=== PATIENT | female | born 1975 | race Caucasian/White ===

== ENCOUNTER → 2016-05-05 | Outpatient (REF) | payer OTHER | END | disposition home or self-care (01) | LOC: M SFHCLERA 16:05 | PROVIDERS: ATTEND Family Medicine | DX: E11.21 Type 2 diabetes mellitus with diabetic nephropathy (principal) ==

== ENCOUNTER → 2016-05-11 | Outpatient (REF) | payer OTHER | END | disposition home or self-care (01) | LOC: M SFHCLERA 12:04 | PROVIDERS: ATTEND Family Medicine | DX: M16.11 Unilateral primary osteoarthritis, right hip (principal) ==

== ENCOUNTER → 2016-06-29 | Outpatient (CLI) | payer OTHER ==
--- NOTE | 2016-06-29 15:02 | REP ---
Clinical: Ulnar neuritis. Technique: AP, lateral, bilateral oblique views of the left elbow. Findings: Age-related changes appreciated. No evidence for acute fracture or dislocation. No significant swelling. Anterior and posterior fat pads are not normal position. No periarticular or soft tissue calcifications identified. Impression: Age-appropriate left elbow radiograph series. Signed by Ashwin Yañez MD 06/29/2016 02:53 P
== END ==
LOC: M LRY 14:32
PROVIDERS: ATTEND Family Medicine
DX: G56.22 Lesion of ulnar nerve, left upper limb (principal)

== ENCOUNTER 2016-07-07 16:26 | Emergency (ER) | payer OTHER ==
[~2016-07-07] VITALS: Ht 160 cm; Wt 93.0 kg
[2016-07-07 16:27] VITALS: BP 174/93
[2016-07-07] MEDS ORDERED: OMEP20CA3 PO (16:40)
[2016-07-07] MEDS ORDERED: ATEN50TA2 PO (16:40)
[2016-07-07] MEDS ORDERED: PRAV1TAB39 PO (16:40)
[2016-07-07] MEDS ORDERED: BUPR1TAB17 PO (16:40)
[2016-07-07] MEDS ORDERED: IBUP800T23 PO (16:40)
[2016-07-07] MEDS ORDERED: INVO300T PO (16:40)
[2016-07-07] MEDS ORDERED: OXYC-517 PO (16:40)
[2016-07-07] MEDS ORDERED: TOUJ1.2I SC (16:40)
[2016-07-07] MEDS ORDERED: ZOLO100T PO (16:40)
[2016-07-07] MEDS ORDERED: HYDR12.55 PO (16:40)
[2016-07-07] MEDS ORDERED: LIDO1OIN2 TOP (16:53)
== END 2016-07-07 17:13 | disposition home or self-care (01) ==
LOC: M ED 16:57
DX: G56.02 Carpal tunnel syndrome, left upper limb (principal); F99 Mental disorder, not otherwise specified; F17.210 Nicotine dependence, cigarettes, uncomplicated; Z79.899 Other long term (current) drug therapy; Z88.0 Allergy status to penicillin; Z79.84 Long term (current) use of oral hypoglycemic drugs; Z79.4 Long term (current) use of insulin

== ENCOUNTER → 2016-07-26 | Outpatient (CLI) | payer OTHER ==
[~2016-07-26] MED LIST: ATEN50TA2 PO; BUPR1TAB17 PO; HYDR12.55 PO; IBUP800T23 PO; INVO300T PO; LIDO1OIN2 TOP; OMEP20CA3 PO; OXYC-517 PO; PRAV1TAB39 PO; TOUJ1.2I SC; ZOLO100T PO
--- NOTE | 2016-07-27 03:24 | REP ---
Clinical: Pain. Technique: AP, lateral, bilateral oblique views. Findings: The carpal bones, surrounding osseous structures, soft tissues, and joint spaces are normal. There is no evidence for acute fracture or dislocation. No subcutaneous emphysema or radiodense foreign body. Impression: Normal age appropriate wrist series. No acute fracture or dislocation Signed by Ashwin Yañez MD 07/27/2016 03:16 A
--- NOTE | 2016-07-27 03:26 | REP ---
Clinical: Pain . Technique: AP, lateral, bilateral oblique views left hand . Findings: The osseous structures and joint spaces are intact and normal for age . There is no evidence for acute fracture or dislocation. Surrounding soft tissues are unremarkable. No significant arthritic change is appreciated. No subcutaneous emphysema or radiodense foreign body. Impression: Normal age appropriate examination. No acute fracture or dislocation. Signed by Ashwin Yañez MD 07/27/2016 03:17 A
== END ==
LOC: M LRY 11:08
PROVIDERS: ATTEND Family Medicine
DX: E11.21 Type 2 diabetes mellitus with diabetic nephropathy (principal); M79.642 Pain in left hand

== ENCOUNTER → 2017-06-20 | Outpatient (REF) | payer OTHER ==
[2017-06-20 21:25] LABS: ANION GAP 11 MEQ/L (8-16); BLOOD UREA NITROGEN 20 MG/DL (7-18); CALCIUM LEVEL 9.2 MG/DL (8.5-10.1); CARBON DIOXIDE LEVEL 28 MEQ/L (21-32); CHLORIDE LEVEL 96 MEQ/L (98-107); CREATININE FOR GFR 0.82 MG/DL (0.55-1.30); GLOMERULAR FILTRATION RATE > 60.0 (>58); GLUCOSE, FASTING 288 MG/DL (70-100); POTASSIUM SERUM 4.4 MEQ/L (3.5-5.1); SODIUM LEVEL 135 MEQ/L (136-145)
[2017-06-20 21:53] LABS: CREATININE, URINE 36.7 MG/DL
[2017-06-20 22:01] LABS: ESTIMATED AVERAGE GLUCOSE 269 MG/DL (60-110)
== END ==
LOC: M SFHCLERA 15:01
DX: E11.21 Type 2 diabetes mellitus with diabetic nephropathy (principal)
CPT/HCPCS: 83036

== ENCOUNTER → 2017-09-19 | Outpatient (REF) | payer OTHER ==
[2017-09-19 18:01] LABS: ESTIMATED AVERAGE GLUCOSE 249 MG/DL (60-110); HEMOGLOBIN A1c 10.3 %
[2017-09-19 18:11] LABS: ALBUMIN 2.7 GM/DL (3.2-5.2); ALKALINE PHOSPHATASE 98 U/L (45-117); ALT/SGPT 28 U/L (12-78); ANION GAP 8 MEQ/L (8-16); AST/SGOT 15 U/L (7-37); BILIRUBIN,TOTAL 0.2 MG/DL (0.2-1.0); BLOOD UREA NITROGEN 18 MG/DL (7-18); CALCIUM LEVEL 8.5 MG/DL (8.5-10.1); CARBON DIOXIDE LEVEL 29 MEQ/L (21-32); CHLORIDE LEVEL 105 MEQ/L (98-107); CREATININE FOR GFR 0.86 MG/DL (0.55-1.30); FREE T4 0.91 NG/DL (0.76-1.46); GLOMERULAR FILTRATION RATE > 60.0 (>58); GLUCOSE, FASTING 224 MG/DL (70-100); POTASSIUM SERUM 4.2 MEQ/L (3.5-5.1); SODIUM LEVEL 142 MEQ/L (136-145); THYROID STIMULATING HORMONE 0.359 uIU/ML (0.358-3.740); TOTAL PROTEIN 7.2 GM/DL (6.4-8.2)
[2017-09-19 21:37] LABS: CREATININE, URINE 70.3 MG/DL; MAU/CREAT RATIO 177.8 MCG/MG (0.0-30.0)
== END ==
LOC: M SFHCLERA 14:14
DX: E11.21 Type 2 diabetes mellitus with diabetic nephropathy (principal); R60.9 Edema, unspecified

== ENCOUNTER → 2018-02-20 | Outpatient (REF) | payer OTHER | LOC: M SFHCLERA 14:11 | DX: E11.21 Type 2 diabetes mellitus with diabetic nephropathy (principal) ==

== ENCOUNTER → 2018-06-01 | Outpatient (REF) | payer OTHER ==
[~2018-06-01] MED LIST changes: +BACT800T5 PO; -BUPR1TAB17 PO; +BUPR1TAB53 PO; +DIFL150T PO; +IBUP1TAB7 PO; -IBUP800T23 PO; +PYRI1TAB5 PO; +SERO1TAB3 PO
[2018-06-01 20:46] LABS: HEMOGLOBIN A1c 9.7 %
[2018-06-01 20:54] LABS: BLOOD UREA NITROGEN 14 MG/DL (7-18); CALCIUM LEVEL 8.5 MG/DL (8.5-10.1); CARBON DIOXIDE LEVEL 26 MEQ/L (21-32); CHLORIDE LEVEL 106 MEQ/L (98-107); CHOLESTEROL LEVEL 228 MG/DL (<200); CHOLESTEROL RISK RATIO 5.428 (<5); CREATININE FOR GFR 0.61 MG/DL (0.55-1.30); GLOMERULAR FILTRATION RATE > 60.0 (>58); GLUCOSE, FASTING 231 MG/DL (70-100); HDL CHOLESTEROL 42 MG/DL (>40); LDL CHOLESTEROL 114 MG/DL (<100); NON-HDL-C 186 MG/DL; POTASSIUM SERUM 5.5 MEQ/L (3.5-5.1); SODIUM LEVEL 141 MEQ/L (136-145); TRIGLYCERIDES LEVEL 362 MG/DL (<150)
[2018-06-01 21:27] LABS: CREATININE, URINE 38.7 MG/DL; MAU/CREAT RATIO 2346.2 MCG/MG (0.0-30.0)
== END ==
LOC: M SFHCLERA 14:32
PROVIDERS: ATTEND Family Medicine
DX: E11.3593 Type 2 diabetes mellitus with proliferative diabetic retinopathy without macular edema, bilateral (principal)

== ENCOUNTER → 2018-06-26 | Outpatient (REF) | payer OTHER | LOC: M SFHCLERA 14:51 | PROVIDERS: ATTEND Family Medicine | DX: E87.5 Hyperkalemia (principal) ==

== ENCOUNTER → 2018-06-29 | Outpatient (REF) | payer OTHER ==
[2018-06-29 20:44] LABS: BASO # 0.1 10^3/uL (0.0-0.2); BASO % 0.7 % (0.0-1.0); EOS # 0.3 10^3/uL (0.0-0.50); EOS % 4.1 % (0.0-3.0); HEMATOCRIT 46.8 % (36.0-47.0); HEMOGLOBIN 14.7 g/dl (12.0-15.5); LYMPH # 2.5 10^3/uL (1.5-4.5); LYMPH % 29.8 % (24.0-44.0); MEAN CORPUSCULAR HEMOGLOBIN 27.7 pg (27.0-33.0); MEAN CORPUSCULAR HGB CONC 31.4 g/dl (32.0-36.5); MEAN CORPUSCULAR VOLUME 88.3 fl (80.0-96.0); MONO # 0.7 10^3/uL (0.0-0.8); MONO % 8.9 % (0.0-5.0); NEUTROPHILS # 4.6 10^3/uL (1.8-7.7); NEUTROPHILS % 56.1 % (36.0-66.0); PLATELET COUNT, AUTOMATED 244 10^3/uL (150-450); WHITE BLOOD COUNT 8.2 10^3/uL (4.0-10.0)
[2018-06-29 20:45] LABS: BLOOD UREA NITROGEN 18 MG/DL (7-18); CALCIUM LEVEL 8.7 MG/DL (8.5-10.1); CARBON DIOXIDE LEVEL 27 MEQ/L (21-32); CHLORIDE LEVEL 105 MEQ/L (98-107); CREATININE FOR GFR 0.81 MG/DL (0.55-1.30); GLOMERULAR FILTRATION RATE > 60.0 (>58); GLUCOSE, FASTING 177 MG/DL (70-100); POTASSIUM SERUM 4.5 MEQ/L (3.5-5.1); SODIUM LEVEL 139 MEQ/L (136-145)
[2018-06-29 21:01] LABS: HEMOGLOBIN A1c 9.2 %
== END ==
LOC: M SFHCLERA 14:42
PROVIDERS: ATTEND Family Medicine
DX: E11.21 Type 2 diabetes mellitus with diabetic nephropathy (principal)

== ENCOUNTER 2018-08-18 14:12 | Inpatient (IN) | payer OTHER ==
[~2018-08-18] VITALS: Ht 160 cm; Wt 107.7 kg
[2018-08-18] MEDS: ENOXAPARIN 40 MG/0.4 ML SYRINGE (J1650) SC SCH (09:00)
[2018-08-18 15:19] LABS: BASO # 0.1 10^3/uL (0.0-0.2); BASO % 0.3 % (0.0-1.0); EOS % 0.3 % (0.0-3.0); HEMATOCRIT 45.8 % (36.0-47.0); HEMOGLOBIN 14.8 g/dl (12.0-15.5); LYMPH # 1.9 10^3/uL (1.5-4.5); LYMPH % 12.9 % (24.0-44.0); MEAN CORPUSCULAR HEMOGLOBIN 28.3 pg (27.0-33.0); MEAN CORPUSCULAR HGB CONC 32.3 g/dl (32.0-36.5); MEAN CORPUSCULAR VOLUME 87.6 fl (80.0-96.0); MONO % 6.6 % (0.0-5.0); NEUTROPHILS # 11.3 10^3/uL (1.8-7.7); NEUTROPHILS % 79.5 % (36.0-66.0); PLATELET COUNT, AUTOMATED 231 10^3/uL (150-450); RED BLOOD COUNT 5.23 10^6/uL (4.00-5.40); WHITE BLOOD COUNT 14.3 10^3/uL (4.0-10.0)
[2018-08-18] MEDS ORDERED: FURO20TA2 PO (15:35)
[2018-08-18] MEDS ORDERED: LISI10TA4 PO (15:35)
[2018-08-18] MEDS ORDERED: PRAV20TA2 (15:35)
[2018-08-18] MEDS ORDERED: STEG15TA PO (15:35)
[2018-08-18 15:41] LABS: ALBUMIN 2.6 GM/DL (3.2-5.2); ALT/SGPT 228 U/L (12-78); BILIRUBIN,DIRECT 0.8 MG/DL (0.0-0.2); BILIRUBIN,TOTAL 1.2 MG/DL (0.2-1.0); BLOOD UREA NITROGEN 15 MG/DL (7-18); CALCIUM LEVEL 8.3 MG/DL (8.5-10.1); CARBON DIOXIDE LEVEL 28 MEQ/L (21-32); CHLORIDE LEVEL 104 MEQ/L (98-107); CREATININE FOR GFR 0.89 MG/DL (0.55-1.30); GLOMERULAR FILTRATION RATE > 60.0 (>58); GLUCOSE, FASTING 230 MG/DL (70-100); LIPASE 70 U/L (73-393); POTASSIUM SERUM 4.3 MEQ/L (3.5-5.1); SODIUM LEVEL 139 MEQ/L (136-145); TOTAL PROTEIN 6.2 GM/DL (6.4-8.2)
[2018-08-18] MEDS ORDERED: MORPHINE 4 MG/ML 1ML VIAL/SYRINGE (J2270) IV ONE (15:45)
[2018-08-18] MEDS ORDERED: ONDANSETRON 4MG/2ML VIAL (J2405) IV ONE (15:45)
[2018-08-18] MEDS ORDERED: NS 1,000 ML IV ONE ×2 (15:45→17:30)
[2018-08-18 16:06] LABS: BASO # 0.1 10^3/uL (0.0-0.2); BASO % 0.4 % (0.0-1.0); EOS # 0.1 10^3/uL (0.0-0.50); EOS % 0.3 % (0.0-3.0); HEMATOCRIT 48.2 % (36.0-47.0); HEMOGLOBIN 15.8 g/dl (12.0-15.5); LYMPH % 13.2 % (24.0-44.0); MEAN CORPUSCULAR HEMOGLOBIN 28.6 pg (27.0-33.0); MEAN CORPUSCULAR HGB CONC 32.8 g/dl (32.0-36.5); MEAN CORPUSCULAR VOLUME 87.2 fl (80.0-96.0); MONO # 1.1 10^3/uL (0.0-0.8); MONO % 7.2 % (0.0-5.0); NEUTROPHILS # 11.8 10^3/uL (1.8-7.7); NEUTROPHILS % 78.6 % (36.0-66.0); PLATELET COUNT, AUTOMATED 252 10^3/uL (150-450); RED BLOOD COUNT 5.53 10^6/uL (4.00-5.40); WHITE BLOOD COUNT 15.1 10^3/uL (4.0-10.0)
[2018-08-18 16:32] LABS: ALBUMIN 2.8 GM/DL (3.2-5.2); ALT/SGPT 301 U/L (12-78); BILIRUBIN,DIRECT 0.8 MG/DL (0.0-0.2); BILIRUBIN,TOTAL 1.2 MG/DL (0.2-1.0); BLOOD UREA NITROGEN 15 MG/DL (7-18); CALCIUM LEVEL 8.5 MG/DL (8.5-10.1); CARBON DIOXIDE LEVEL 26 MEQ/L (21-32); CHLORIDE LEVEL 104 MEQ/L (98-107); CREATININE FOR GFR 0.91 MG/DL (0.55-1.30); GLOMERULAR FILTRATION RATE > 60.0 (>58); GLUCOSE, FASTING 225 MG/DL (70-100); LIPASE 84 U/L (73-393); POTASSIUM SERUM 4.2 MEQ/L (3.5-5.1); SODIUM LEVEL 139 MEQ/L (136-145); TOTAL PROTEIN 6.5 GM/DL (6.4-8.2)
[2018-08-18] MEDS ORDERED: fentaNYL 100 MCG/2 ML INJECTION (J3010) IV ONE (17:00)
[2018-08-18] MEDS ORDERED: SODIUM CHLORIDE 0.9% 1000ML IV ONE (18:00)
[2018-08-18] MEDS ORDERED: cefTRIAXone SOD 1 GM in D5W MINI-BAG PLUS 50 ML IV ONE (18:00)
[2018-08-18] MEDS ORDERED: CVS1CAP2 PO (18:01)
[2018-08-18] MEDS ORDERED: QUET5TAB PO (18:01)
[2018-08-18] MEDS ORDERED: MULTCAP PO (18:01)
[2018-08-18] MEDS ORDERED: BUPR-365 PO (18:01)
[2018-08-18] MEDS ORDERED: DULO60CA35 PO (18:01)
[2018-08-18] MEDS ORDERED: GABA600T4 PO (18:01)
[2018-08-18] MEDS ORDERED: ADME100I SC (18:01)
[2018-08-18] MEDS ORDERED: BASA100I SC (18:01)
[2018-08-18] MEDS: MEROPENEM INJ 1 GM in APPROPRIATE DILUENT 1 EA IV SCH (18:27)
[2018-08-18] MEDS ORDERED: GLUCAGON FOR INJ 1 MG VIAL (J1610) SC PRN (18:30)
[2018-08-18] MEDS ORDERED: GLUCOSE 4 GM CHEW TABLET PO PRN (18:30)
[2018-08-18] MEDS ORDERED: DEXTROSE 50% 50 ML SYRINGE IV PRN (18:30)
--- NOTE | 2018-08-18 18:50 | HPEPDOC ---
[facility] Medical History & Physical Date of Admission Attending Physician: Vince History and Physical DATE OF ADMISSION: 08/18/2018 PCP: Silviano CHIEF COMPLAINT: Right upper quadrant abdominal pain HISTORY OF PRESENT ILLNESS: Patient is a 43-year-old female who was in the usual state of her health when last night she developed pain right upper quadrant abdominal pain to the point that she had no appetite. She tells me that she has had associated nausea but no vomiting tells me stabbing pain that comes and goes in waves she denies any fevers although she tells me she simply felt feverish but did not measure it. She has not tried taking anything for this pain again and has never had this pain before it is not positional in nature she tells me that she is started new insulin Basagalar. Otherwise denies any recent changes. The patient denies alcohol intake or illicit drug use PAST MEDICAL HISTORY: 1. Diabetes mellitus. 2. Hypertension. 3. Migraines 4. Depression and anxiety 5. Gastroc reflux disease 6. Bipolar 1 7. Noncompliance. HOME MEDICATIONS: Please see below. ALLERGIES: Please see below PAST SURGICAL HISTORY: 1. "2 right hip surgeries." 2. . 3. Right shoulder surgery 4. Carpal tunnel release bilaterally 5. "Left elbow nerve surgery." SOCIAL HISTORY: Lives with: Boyfriend and son, Employment: Unemployed, Tobacco use: 30 pack years. ETOH: Minimal last drink was months ago, Illicit drug use: Denies, Tattoos done unprofessionally: Denies. IV drug use: Denies CODE STATUS: Full code FAMILY HISTORY:Reviewed and noncontributory REVIEW OF SYSTEMS: CONSTITUTIONAL: Denies weight loss, night sweats, fatigue malaise other than noted in HPI HEENT: Denies visual changes, headache, eye pain, running nose, nosebleeds, rining in the ear, sore throat. CARDIOVASCULAR: Denies chest pain, shortness of breath, PND, orthopnea, edema. RESPIRATORY: Denies cough, sputum, wheeze, hemoptysis. GASTROINTESTINAL: Positive for abdominal pain, nausea, denies vomiting, diarrhea. GENITOURINARY: Denies incontinence, frequency, dysuria. SKIN: Denies pruritus, marcelino, dryness, open wounds. MUSCULOSKELETAL: Denies muscle ache,s weakness, worsening arthritis. NEUROLOGICAL: Denies seizures, paresthesias, paralysis, gait instability. PSYCHIATRIC: Patient denies difficulty with concentration, anxiety, anhedonia, depression, energy from her baseline. ENDOCRINE: Patient denies cold or heat intolerance, changes in appetite, hair loss. HEMATOLOGIC/LYMPHATIC: Denies purpura, petechia, easy bleeding. PHYSICAL EXAMINATION: VITAL SIGNS: Temperature 98.4, pulse 97, respiratory rate 18, blood pressure 150/77, pulse oximetry 94% % on room air. GENERAL: Pleasant obese female middle age laying in bed awake alert oriented speaking in complete sentences appears mildly uncomfortable, she is accompanied by her son and boyfriend HEENT: Moist mucous membranes no elevation and CVP CARDIOVASCULAR: S1 S2 regular no additional heart sounds appreciated. RESPIRATORY: Clear to auscultation bilaterally. ABDOMINAL: Bowel sounds present abdomen soft and exquisitely tender in the right upper quadrant with positive Lee sign EXTREMITIES: No clubbing cyanosis or edema NEUROLOGICAL: Spontaneously moves all 4 extremities cranial 2 through 12 grossly intact no gross focal deficits appreciated PSYCHOLOGICAL: Appropriate LABORATORY DATA: See below. MICROBIOLOGY: Please see below. IMAGING: Gallbladder ultrasound report pending ASSESSMENT & PLAN:. This is a 43-year-old female with right upper quadrant pain possibly choledocholithiasis versus cholecystitis PROBLEMS: 1. Right upper quadrant pain: Acute cholecystitis versus choledocholithiasis. She does have significant elevation in her liver function tests I do not have the report for her gallbladder ultrasound every step to Dr. Talavera of general surgery to review the images and see the patient in consultation and he is agreed to do so. If her CBD is dilated and more suspicious for choledocholithiasis and think the patient would benefit from an ERCP however I will await further information before reaching out to gastroenterology. For the time being I'll keep her nothing by mouth I'll start her on empiric meropenem she does present with leukocytosis and elevated lactic acid is certainly due to concern for sepsis. She did receive some IV fluids in the emergency room increased as to sepsis bolus protocol. I'll keep her nothing by mouth provided with pain medication as well as antiemetics. My suspicion for acute hepatitis is lower however I'll check a Tylenol level and a toxicology screen given the significant elevation in her liver function tests. If the gallbladder ultrasound is unrevealing she may warrant further evaluation of her right upper quadrant with a hepatic Doppler 2. Diabetes: As she is nothing by mouth I'll provide her with sliding scale every 6 and fingersticks and hyperglycemia protocol and provide her with her gabapentin to prevent any withdrawal symptoms 3. Hypertension: Given her presentation I will hold her home antihypertensives including lisinopril furosemide atenolol 4. Anxiety depression: For the time being I'm holding her bupropion duloxetine but I'm optimistic about resuming these in the near future, we'll continue her Seroquel daily at bedtime 5. Dyslipidemia: I'm holding her statin she does have an acute inflammation of her liver 6. Gastroesophageal reflux disease: I will provide her with a PPI IV DVT PROPHYLAXIS: Lovenox DISPOSITION: She is admitted to the medical surgical floor and continue to follow the patient closely Vital Signs Vital Signs Date Time Temp Pulse Resp B/P (MAP) Pulse Ox O2 Delivery O2 Flow Rate FiO2 08/18/18 18:36 08/18/18 17:42 98.4 97 18 94 Room Air Laboratory Data Labs 24H Laboratory Tests 2 08/18/18 15:07: Urine Color CARLA, Urine Appearance CLEAR, Urine pH 5.0, Urine Specific [place] 1.033, Urine Protein 2+H, Urine Glucose (UA) 3+H, Urine Ketones NEGATIVE, Urine Blood 2+H, Urine Nitrite NEGATIVE, Urine Bilirubin NEGATIVE, Urine Urobilinogen 4.0H, Urine Leukocyte Esterase NEGATIVE, Urine WBC (Auto) 1, Urine RBC (Auto) 16H, Urine Hyaline Casts (Auto) 0, Urine Bacteria (Auto) NEGATIVE, Urine Squamous Epithelial Cells 3, Urine Sperm (Auto) 08/18/18 15:08: Immature Granulocyte % (Auto) 0.4, White Blood Count 14.3H, Red Blood Count 5.23, Hemoglobin 14.8, Hematocrit 45.8, Mean Corpuscular Volume 87.6, Mean Corpuscular Hemoglobin 28.3, Mean Corpuscular Hemoglobin Concent 32.3, Red Cell Distribution Width 15.0H, Platelet Count 231, Neutrophils (%) (Auto) 79.5H, Lymphocytes (%) (Auto) 12.9L, Monocytes (%) (Auto) 6.6H, Eosinophils (%) (Auto) 0.3, Basophils (%) (Auto) 0.3, Neutrophils # (Auto) 11.3H, Lymphocytes # (Auto) 1.9, Monocytes # (Auto) 1.0H, Eosinophils # (Auto) 0.0, Basophils # (Auto) 0.1, Nucleated Red Blood Cells % (auto) 0.0, Anion Gap 7L, Glomerular Filtration Rate > 60.0, Calcium Level 8.3L, Aspartate Amino Transf (AST/SGOT) 544H, Alanine Aminotransferase (ALT/SGPT) 228H, Alkaline Phosphatase 182H, Total Bilirubin 1.2H, Direct Bilirubin 0.8H, Total Protein 6.2L, Albumin 2.6L, Albumin/Globulin Ratio 0.72L, Lipase 70L 08/18/18 15:57: Immature Granulocyte % (Auto) 0.3, White Blood Count 15.1H, Red Blood Count 5.53H, Hemoglobin 15.8H, Hematocrit 48.2H, Mean Corpuscular Volume 87.2, Mean Corpuscular Hemoglobin 28.6, Mean Corpuscular Hemoglobin Concent 32.8, Red Cell Distribution Width 15.0H, Platelet Count 252, Neutrophils (%) (Auto) 78.6H, Lymphocytes (%) (Auto) 13.2L, Monocytes (%) (Auto) 7.2H, Eosinophils (%) (Auto) 0.3, Basophils (%) (Auto) 0.4, Neutrophils # (Auto) 11.8H, Lymphocytes # (Auto) 2.0, Monocytes # (Auto) 1.1H, Eosinophils # (Auto) 0.1, Basophils # (Auto) 0.1, Nucleated Red Blood Cells % (auto) 0.0, Anion Gap 9, Glomerular Filtration Rate > 60.0, Calcium Level 8.5, Aspartate Amino Transf (AST/SGOT) 687H, Alanine Aminotransferase (ALT/SGPT) 301H, Alkaline Phosphatase 197H, Total Bilirubin 1.2H, Direct Bilirubin 0.8H, Total Protein 6.5, Albumin 2.8L, Albumin/Globulin Ratio 0.76L, Lipase 84, Lactic Acid Level 2.9*H CBC/BMP Laboratory Tests 08/18/18 15:08 Red Blood Count 5.23, Mean Corpuscular Volume 87.6, Mean Corpuscular Hemoglobin 28.3, Mean Corpuscular Hemoglobin Concent 32.3, Red Cell Distribution Width 15.0 H, Neutrophils (%) (Auto) 79.5 H, Lymphocytes (%) (Auto) 12.9 L, Monocytes (%) (Auto) 6.6 H, Eosinophils (%) (Auto) 0.3, Basophils (%) (Auto) 0.3, Neutrophils # (Auto) 11.3 H, Lymphocytes # (Auto) 1.9, Monocytes # (Auto) 1.0 H, Eosinophils # (Auto) 0.0, Basophils # (Auto) 0.1 08/18/18 15:57 Red Blood Count 5.53 H, Mean Corpuscular Volume 87.2, Mean Corpuscular Hemoglobin 28.6, Mean Corpuscular Hemoglobin Concent 32.8, Red Cell Distribution Width 15.0 H, Neutrophils (%) (Auto) 78.6 H, Lymphocytes (%) (Auto) 13.2 L, Monocytes (%) (Auto) 7.2 H, Eosinophils (%) (Auto) 0.3, Basophils (%) (Auto) 0.4, Neutrophils # (Auto) 11.8 H, Lymphocytes # (Auto) 2.0, Monocytes # (Auto) 1.1 H, Eosinophils # (Auto) 0.1, Basophils # (Auto) 0.1 Home Medications Scheduled Atenolol (Atenolol) 50 Mg Tab, 50 MG PO QHS Bupropion HCl (Bupropion Xl) 150 Mg Tab.er.24h, 150 MG PO QHS Duloxetine HCl (Duloxetine HCl) 60 Mg Capsule.dr, 60 MG PO QHS Ertugliflozin Pidolate (Steglatro) 15 Mg Tablet, 15 MG PO QHS Furosemide (Furosemide) 20 Mg Tablet, 20 MG PO QHS Gabapentin (Gabapentin) 600 Mg Tablet, 2,400 MG PO QHS Insulin Glargine,Hum.rec.anlog (Basaglar Kwikpen U-100) 100 Unit/1 Ml Insuln.pen, 45 UNIT SC QHS RX IS FOR 45 UNITS BID, BUT PATIENT ONLY TAKES QHS Insulin Lispro (Admelog) 100 Unit/1 Ml Vial, 1 DOSE SC AC PER SLIDING SCALE Lactobacillus Combo No.10 (Probiotic) 1 Each Capsule, 1 CAP PO QHS Lisinopril (Lisinopril) 10 Mg Tablet, 10 MG PO QHS Multivitamin (Multivitamins) 1 Each Capsule, 1 CAP PO QHS Omeprazole (Omeprazole) 20 Mg Cap, 20 MG PO QHS Pravastatin Sodium (Pravachol) 20 Mg Tab, 20 MG PO QHS Quetiapine Fumarate (Quetiapine Fumarate) 50 Mg Tablet, 50 MG PO QHS Scheduled PRN Ibuprofen (Ibuprofen) 800 Mg Tab, 800 MG PO TID PRN for PAIN Allergies Coded Allergies: amoxicillin (Verified Allergy, Mild, RASH, 08/18/18) metformin (Verified Adverse Reaction, Mild, DIARRHEA, 08/18/18) A-FIB/CHADSVASC A-FIB History Current/History of A-Fib/PAF?: No SANTY KULKARNI MD August 18, 2018 18:50
[2018-08-18] MEDS ORDERED: MORPHINE 4 MG/ML 1ML VIAL/SYRINGE (J2270) IV PRN ×2 (19:00→20:15)
[2018-08-18] MEDS: HumaLOG INSULIN (NovoLOG) PER UNIT SC SCH ×2 (19:03→23:56)
[2018-08-18] MEDS: MORPHINE 4 MG/ML 1ML VIAL/SYRINGE (J2270) IV PRN (20:21)
[2018-08-18] MEDS: NS 1,000 ML IV SCH (20:25)
[2018-08-18 20:40] VITALS: BP 143/82
[2018-08-18 20:57] LABS: ACETAMINOPHEN LEVEL < 2.0 UG/ML (10.0-30.0); ETHYL ALCOHOL (ETHANOL) < 0.003 % (0.000-0.010)
[2018-08-18] MEDS: GABAPENTIN 300 MG CAP PO SCH (21:15)
[2018-08-18] MEDS: PANTOPRAZOLE 40MG INJ (PROTONIX) (C9113) IV SCH (21:15)
[2018-08-18] MEDS: QUEtiapine FUMARATE 50 MG TAB PO SCH (21:15)
[2018-08-19] MEDS: MEROPENEM INJ 1 GM in APPROPRIATE DILUENT 1 EA IV SCH ×3 (01:49→17:29)
[2018-08-19] MEDS: MORPHINE 4 MG/ML 1ML VIAL/SYRINGE (J2270) IV PRN ×2 (01:50→05:54)
[2018-08-19] MEDS: NS 1,000 ML IV SCH ×2 (05:53→15:33)
[2018-08-19] MEDS: HumaLOG INSULIN (NovoLOG) PER UNIT SC SCH ×3 (05:54→17:24)
[2018-08-19 06:00] VITALS: BP 144/76
[2018-08-19 06:54] LABS: HEMATOCRIT 45.6 % (36.0-47.0); HEMOGLOBIN 14.3 g/dl (12.0-15.5); MEAN CORPUSCULAR HGB CONC 31.4 g/dl (32.0-36.5); MEAN CORPUSCULAR VOLUME 89.2 fl (80.0-96.0); PLATELET COUNT, AUTOMATED 216 10^3/uL (150-450); RED BLOOD COUNT 5.11 10^6/uL (4.00-5.40); WHITE BLOOD COUNT 14.2 10^3/uL (4.0-10.0)
--- NOTE | 2018-08-19 07:49 | REP ---
GALLBLADDER ULTRASOUND: 08/18/2018. Clinical history: Right upper quadrant abdominal pain. Findings: There are no prior pertinent studies. Sonographic evaluation of the liver shows it to be homogeneous in echotexture. I do not see discrete hepatic mass or intrahepatic biliary dilatation. No adjacent ascites. Gallbladder shows multiple echogenic stones with shadowing. These appear mobile. Wall thickness normal. There is no pericholecystic fluid. However, there is a positive sonographic Lee's sign. Common duct is 6.8 mm without a visible filling defect. This is at the upper limits of normal in this age group. Pancreas is not identified well on this study due to extensive gas shadowing. Right kidney is 12.3 x 5.5 x 6.6 cm without hydronephrosis or definite stone. Impression: 1. Cholelithiasis with multiple mobile shadowing gallstones and a positive sonographic Lee's sign that may reflect acute cholecystitis. 2. No intrahepatic biliary dilatation but there is a common duct 6.8 mm which is upper limits of normal for size in this age group. The distal common duct is not visible. The pancreas is not visible on this study. Distal common duct filling defects are not excluded. 3. Right kidney without stone or hydronephrosis. Electronically Signed by Jim De Santiago MD 08/19/2018 11:38 A
[2018-08-19 08:35] LABS: ALBUMIN 2.4 GM/DL (3.2-5.2); ALT/SGPT 242 U/L (12-78); BILIRUBIN,TOTAL 0.5 MG/DL (0.2-1.0); BLOOD UREA NITROGEN 15 MG/DL (7-18); CALCIUM LEVEL 7.4 MG/DL (8.5-10.1); CARBON DIOXIDE LEVEL 25 MEQ/L (21-32); CHLORIDE LEVEL 108 MEQ/L (98-107); CREATININE FOR GFR 0.88 MG/DL (0.55-1.30); GLOMERULAR FILTRATION RATE > 60.0 (>58); GLUCOSE, FASTING 124 MG/DL (70-100); SODIUM LEVEL 140 MEQ/L (136-145); TOTAL PROTEIN 5.3 GM/DL (6.4-8.2)
--- NOTE | 2018-08-19 08:51 | IPNPDOC ---
Text Note Date of Service The patient was seen on 08/19/18. NOTE No acute events overnight. Denies nausea, emesis, or fevers. Her abd pain is not improved from yesterday, but it does feel a little better with sips of water. VSSAF NAD abd - soft, slight tenderness RUQ only, no rebound or guarding labs - below LFTS are all improving A) 43y/o female with acute cholecystitis with elevated LFTs that are improving DM HTN P) advance diet as tolerated abx low fat diet plan on d/c once pain is controlled, and plan for elective john in 2 weeks. Brian Talavera DO A-FIB/CHADSVASC A-FIB History Current/History of A-Fib/PAF?: No VS,Fishbone, I+O VS, Fishbone, I+O Laboratory Tests 08/18/18 15:08 Red Blood Count 5.23, Mean Corpuscular Volume 87.6, Mean Corpuscular Hemoglobin 28.3, Mean Corpuscular Hemoglobin Concent 32.3, Red Cell Distribution Width 15.0 H, Neutrophils (%) (Auto) 79.5 H, Lymphocytes (%) (Auto) 12.9 L, Monocytes (%) (Auto) 6.6 H, Eosinophils (%) (Auto) 0.3, Basophils (%) (Auto) 0.3, Neutrophils # (Auto) 11.3 H, Lymphocytes # (Auto) 1.9, Monocytes # (Auto) 1.0 H, Eosinophils # (Auto) 0.0, Basophils # (Auto) 0.1 08/18/18 15:57 Red Blood Count 5.53 H, Mean Corpuscular Volume 87.2, Mean Corpuscular Hemoglo bin 28.6, Mean Corpuscular Hemoglobin Concent 32.8, Red Cell Distribution Width 15.0 H, Neutrophils (%) (Auto) 78.6 H, Lymphocytes (%) (Auto) 13.2 L, Monocytes (%) (Auto) 7.2 H, Eosinophils (%) (Auto) 0.3, Basophils (%) (Auto) 0.4, Neutrophils # (Auto) 11.8 H, Lymphocytes # (Auto) 2.0, Monocytes # (Auto) 1.1 H, Eosinophils # (Auto) 0.1, Basophils # (Auto) 0.1 08/19/18 05:58 Red Blood Count 5.11, Mean Corpuscular Volume 89.2, Mean Corpuscular Hemoglobin 28.0, Mean Corpuscular Hemoglobin Concent 31.4 L, Red Cell Distribution Width 15.4 H 08/19/18 07:44 Calcium Level 7.4 L, Aspartate Amino Transf (AST/SGOT) 172 H, Alanine Aminotransferase (ALT/SGPT) 242 H, Alkaline Phosphatase 146 H, Total Bilirubin 0.5 #, Total Protein 5.3 L, Albumin 2.4 L Vital Signs Date Time Temp Pulse Resp B/P (MAP) Pulse Ox O2 Delivery O2 Flow Rate FiO2 08/19/18 06:10 16 08/19/18 06:00 99.4 120 144/76 (98) 94 08/18/18 20:38 Room Air I&O- Last 24 Hours up to 6 AM 08/19/18 06:00 Intake Total 1650 ml Output Total 500 ml Balance 1150 ml CE TALAVERA DO August 19, 2018 08:51
[2018-08-19] MEDS ORDERED: NORCO, ANEXSIA 5/325MG TABLET (HYDROcodone/ACETAMINOPHEN) PO PRN (09:00)
[2018-08-19] MEDS ORDERED: MORPHINE 4 MG/ML 1ML VIAL/SYRINGE (J2270) IV ONE (09:15)
[2018-08-19] MEDS: ENOXAPARIN 40 MG/0.4 ML SYRINGE (J1650) SC SCH (09:28)
[2018-08-19] MEDS ORDERED: NORCO, ANEXSIA 5/325MG TABLET (HYDROcodone/ACETAMINOPHEN) PO ONE (11:30)
--- NOTE | 2018-08-19 11:45 | IPNPDOC ---
Date Seen The patient was seen on 08/19/18. Progress Note SUBJECTIVE: Patient was seen and examined this morning. She currently complains of increased pain in her right upper quadrant. She denies nausea however, states that she has no appetite. She states that the pain medication that she has been receiving is not working. She is accompanied by her mother at bedside. OBJECTIVE PHYSICAL EXAMINATION: VITAL SIGNS: Please see below. GENERAL: Awake, alert, and oriented. The patient appears uncomfortable. She is not in acute distress. HEENT: Atruamtic, normocephalic. Eyes are nonicteric. Trachea is midline. Mucous membranes are pink and moist CARDIOVASCULAR: Normal S1, S2. Regular rate and rhythm. No clicks, rubs, or murmurs RESPIRATORY: Clear vesicular breath sounds bilaterally. Poor respiratory effort secondary to pain. No wheezes, rhonci, or rales ABDOMINAL: Obese, soft, nondistended. Tenderness to light palpation of the right upper quadrant. Positive bowel sounds. No masses or hernias EXTREMITIES: No edema. Full and equal pulses in bilateral upper and lower extremities NEUROLOGICAL: No focal neurological deficits PSYCHOLOGICAL: Anxious appearing. Mood and affect are appropriate for situation LABORATORY DATA, IMAGING STUDIES, MICROBIOLOGY: Please see below. DVT prophylaxis ordered?: YES ASSESSMENT AND PLAN: Patient is a 43 year old female with a past medical history of DMII, hypertension, migraines, depression/anxiety, GERD, and bipolar disorder who presented to the [facility] ER with complain of right upper quadrant pain that began 2 nights ago. She received a gallbladder ultrasound which demonstrated cholelithiasis with multiple mobile shadowing gallstones and a positive sonographic murphys sign but no intrahepatic biliary dilatation. The patient was admitted under suspicion of possible acute cholecystitis. PROBLEMS: 1. Acute Cholecystitis -Patient presented with right upper quadrant abdominal pain. She had u ltrasound findings consistent with this diagnosis. Patient has been evaluated by General surgery. Patient has been placed on pain medication and Meropenem. -Will continue pain medication. Patients pain was not adequately controlled with IV morphine and NORCO. Plan is to avoid IV opiods as they can cause spasm at the Sphincter of [place]. Will increase [place] to 2 tabs q6h. Continue Ibuprofen. -Keep patient on a clear liquids diet -Continue Meropenem. -White blood cell count is improving although minimally -Patient had elevated transaminases. Currently trending down. Will continue to follow. -General Consultation has been placed. Recommendations and help greatly appreciated. 2. DMII -Continue sliding scale insulin 3. Hypertension -Currently stable. Will continue to hold her BP medication 4. Anxiety/Depression -Will continue Seroquel 5. Dyslipidemia -Holding statin 6. GERD -Patient is currently on Protonix 7. DVT prophylaxis -Lovenox A-FIB/CHADSVASC A-FIB History Current/History of A-Fib/PAF?: No VS, I&O, 24H, Fishbone Vital Signs/I&O Vital Signs Date Time Temp Pulse Resp B/P (MAP) Pulse Ox O2 Delivery O2 Flow Rate FiO2 08/19/18 09:26 18 08/19/18 06:00 99.4 120 144/76 (98) 94 08/18/18 20:38 Room Air I&O- Last 24 Hours up to 6 AM 08/19/18 06:00 Intake Total 1650 ml Output Total 500 ml Balance 1150 ml Laboratory Data 24H LABS Laboratory Tests 2 08/18/18 15:07: Urine Color CARLA, Urine Appearance CLEAR, Urine pH 5.0, Urine Specific [place] 1.033, Urine Protein 2+H, Urine Glucose (UA) 3+H, Urine Ketones NEGATIVE, Urine Blood 2+H, Urine Nitrite NEGATIVE, Urine Bilirubin NEGATIVE, Urine Urobilinogen 4.0H, Urine Leukocyte Esterase NEGATIVE, Urine WBC (Auto) 1, Urine RBC (Auto) 16H, Urine Hyaline Casts (Auto) 0, Urine Bacteria (Auto) NEGATIVE, Urine Squamous Epithelial Cells 3, Urine Sperm (Auto) 08/18/18 15:08: Immature Granulocyte % (Auto) 0.4, White Blood Count 14.3H, Red Blood Count 5.23, Hemoglobin 14.8, Hematocrit 45.8, Mean Corpuscular Volume 87.6, Mean Corpuscular Hemoglobin 28.3, Mean Corpuscular Hemoglobin Concent 32.3, Red Cell Distribution Width 15.0H, Platelet Count 231, Neutrophils (%) (Auto) 79.5H, Lymphocytes (%) (Auto) 12.9L, Monocytes (%) (Auto) 6.6H, Eosinophils (%) (Auto) 0.3, Basophils (%) (Auto) 0.3, Neutrophils # (Auto) 11.3H, Lymphocytes # (Auto) 1.9, Monocytes # (Auto) 1.0H, Eosinophils # (Auto) 0.0, Basophils # (Auto) 0.1, Nucleated Red Blood Cells % (auto) 0.0, Anion Gap 7L, Glomerular Filtration Rate > 60.0, Calcium Level 8.3L, Aspartate Amino Transf (AST/SGOT) 544H, Alanine Aminotransferase (ALT/SGPT) 228H, Alkaline Phosphatase 182H, Total Bilirubin 1.2H, Direct Bilirubin 0.8H, Total Protein 6.2L, Albumin 2.6L, Albumin/Globulin Ratio 0.72L, Lipase 70L 08/18/18 15:57: Immature Granulocyte % (Auto) 0.3, White Blood Count 15.1H, Red Blood Count 5.53H, Hemoglobin 15.8H, Hematocrit 48.2H, Mean Corpuscular Volume 87.2, Mean Corpuscular Hemoglobin 28.6, Mean Corpuscular Hemoglobin Concent 32.8, Red Cell Distribution Width 15.0H, Platelet Count 252, Neutrophils (%) (Auto) 78.6H, Lymphocytes (%) (Auto) 13.2L, Monocytes (%) (Auto) 7.2H, Eosinophils (%) (Auto) 0.3, Basophils (%) (Auto) 0.4, Neutrophils # (Auto) 11.8H, Lymphocytes # (Auto) 2.0, Monocytes # (Auto) 1.1H, Eosinophils # (Auto) 0.1, Basophils # (Auto) 0.1, Nucleated Red Blood Cells % (auto) 0.0, Anion Gap 9, Glomerular Filtration Rate > 60.0, Calcium Level 8.5, Aspartate Amino Transf (AST/SGOT) 687H, Alanine Aminotransferase (ALT/SGPT) 301H, Alkaline Phosphatase 197H, Total Bilirubin 1.2H, Direct Bilirubin 0.8H, Total Protein 6.5, Albumin 2.8L, Albumin/Globulin Ratio 0.76L, Lipase 84, Lactic Acid Level 2.9*H 08/18/18 19:01: Bedside Glucose (Misc Panel) 144H 08/18/18 20:20: Lactic Acid Followup at 4 Hours 1.8, Acetaminophen Level < 2.0L, Ethyl Alcohol Level < 0.003 08/18/18 23:48: Bedside Glucose (Misc Panel) 130H 08/19/18 05:46: Bedside Glucose (Misc Panel) 115H 08/19/18 05:58: Nucleated Red Blood Cells % (auto) 0.0 08/19/18 07:43: 08/19/18 07:44: Anion Gap 7L, Glomerular Filtration Rate > 60.0, Blood Urea Nitrogen 15, Creatinine 0.88, Sodium Level 140, Potassium Level 4.0, Chloride Level 108H, Carbon Dioxide Level 25, Calcium Level 7.4L, Aspartate Amino Transf (AST/SGOT) 172H, Alanine Aminotransferase (ALT/SGPT) 242H, Alkaline Phosphatase 146H, Total Bilirubin 0.5#, Total Protein 5.3L, Albumin 2.4L, Albumin/Globulin Ratio 0.83L CBC/BMP Laboratory Tests 08/18/18 15:08 Red Blood Count 5.23, Mean Corpuscular Volume 87.6, Mean Corpuscular Hemoglobin 28.3, Mean Corpuscular Hemoglobin Concent 32.3, Red Cell Distribution Width 15.0 H, Neutrophils (%) (Auto) 79.5 H, Lymphocytes (%) (Auto) 12.9 L, Monocytes (%) (Auto) 6.6 H, Eosinophils (%) (Auto) 0.3, Basophils (%) (Auto) 0.3, Neutrophils # (Auto) 11.3 H, Lymphocytes # (Auto) 1.9, Monocytes # (Auto) 1.0 H, Eosinophils # (Auto) 0.0, Basophils # (Auto) 0.1 08/18/18 15:57 Red Blood Count 5.53 H, Mean Corpuscular Volume 87.2, Mean Corpuscular Hemoglobin 28.6, Mean Corpuscular Hemoglobin Concent 32.8, Red Cell Distribution Width 15.0 H, Neutrophils (%) (Auto) 78.6 H, Lymphocytes (%) (Auto) 13.2 L, Monocytes (%) (Auto) 7.2 H, Eosinophils (%) (Auto) 0.3, Basophils (%) (Auto) 0.4, Neutrophils # (Auto) 11.8 H, Lymphocytes # (Auto) 2.0, Monocytes # (Auto) 1.1 H, Eosinophils # (Auto) 0.1, Basophils # (Auto) 0.1 08/19/18 05:58 Red Blood Count 5.11, Mean Corpuscular Volume 89.2, Mean Corpuscular Hemoglobin 28.0, Mean Corpuscular Hemoglobin Concent 31.4 L, Red Cell Distribution Width 15.4 H 08/19/18 07:44 Calcium Level 7.4 L, Aspartate Amino Transf (AST/SGOT) 172 H, Alanine Aminotransferase (ALT/SGPT) 242 H, Alkaline Phosphatase 146 H, Total Bilirubin 0.5 #, Total Protein 5.3 L, Albumin 2.4 L Microbiology Microbiology 08/18/18 Blood Culture, Received Pending 08/18/18 Blood Culture, Received Pending GME ATTESTATION GME ATTESTATION My faculty preceptor for this patient encounter was physically present during the encounter and was fully available. All aspects of the patient interview, ex amination, medical decision making process, and medical care plan development were reviewed and approved by the faculty preceptor. The faculty preceptor is aware and concurs with the plan as stated in the body of this note and will attest to such by his/her cosignature. ATTENDING NOTE I saw and evaluated the patient. I agree with the findings and plan of care as documented in the resident's note PRABHU MCDONALD DO August 19, 2018 11:45 SANTY KULKARNI MD August 20, 2018 09:12
[2018-08-19 14:00] VITALS: BP 171/79
[2018-08-19] MEDS: NORCO, ANEXSIA 5/325MG TABLET (HYDROcodone/ACETAMINOPHEN) PO PRN ×2 (15:33→21:12)
[2018-08-19] MEDS: GABAPENTIN 300 MG CAP PO SCH (21:11)
[2018-08-19] MEDS: QUEtiapine FUMARATE 50 MG TAB PO SCH (21:11)
[2018-08-19] MEDS: ONDANSETRON 4MG/2ML VIAL (J2405) IV PRN (21:11)
[2018-08-19] MEDS: PANTOPRAZOLE 40MG INJ (PROTONIX) (C9113) IV SCH (21:11)
[2018-08-19 22:00] VITALS: BP 137/77
[2018-08-19] MEDS ORDERED: LOPERAMIDE 2 MG CAP PO PRN (22:00)
[2018-08-19] MEDS ORDERED: LOPERAMIDE 2 MG CAP PO ONE (22:00)
[2018-08-19] MEDS: IBUPROFEN 600 MG TAB PO PRN (22:03)
[2018-08-20] VITALS (9 sets, daily range): BP systolic 141–158; BP diastolic 62–95
[2018-08-20] MEDS: NS 1,000 ML IV SCH ×2 (01:58→13:24)
[2018-08-20] MEDS: MEROPENEM INJ 1 GM in APPROPRIATE DILUENT 1 EA IV SCH ×3 (01:58→18:05)
[2018-08-20] MEDS: NORCO, ANEXSIA 5/325MG TABLET (HYDROcodone/ACETAMINOPHEN) PO PRN ×5 (03:25→19:47)
[2018-08-20] MEDS: IBUPROFEN 600 MG TAB PO PRN (05:07)
[2018-08-20] MEDS: HumaLOG INSULIN (NovoLOG) PER UNIT SC SCH ×5 (06:00→17:30)
[2018-08-20 06:14] LABS: HEMATOCRIT 32.3 % (36.0-47.0); HEMOGLOBIN 10.1 g/dl (12.0-15.5); MEAN CORPUSCULAR HEMOGLOBIN 28.4 pg (27.0-33.0); MEAN CORPUSCULAR HGB CONC 31.3 g/dl (32.0-36.5); MEAN CORPUSCULAR VOLUME 90.7 fl (80.0-96.0); PLATELET COUNT, AUTOMATED 164 10^3/uL (150-450); RED BLOOD COUNT 3.56 10^6/uL (4.00-5.40); WHITE BLOOD COUNT 11.1 10^3/uL (4.0-10.0)
[2018-08-20 07:01] LABS: ALBUMIN 1.4 GM/DL (3.2-5.2); ALT/SGPT 95 U/L (12-78); BILIRUBIN,TOTAL 0.3 MG/DL (0.2-1.0); BLOOD UREA NITROGEN 14 MG/DL (7-18); CALCIUM LEVEL 5.2 MG/DL (8.5-10.1); CARBON DIOXIDE LEVEL 17 MEQ/L (21-32); CHLORIDE LEVEL 118 MEQ/L (98-107); CREATININE FOR GFR 0.52 MG/DL (0.55-1.30); GLOMERULAR FILTRATION RATE > 60.0 (>58); GLUCOSE, FASTING 134 MG/DL (70-100); POTASSIUM SERUM 3.4 MEQ/L (3.5-5.1); SODIUM LEVEL 145 MEQ/L (136-145); TOTAL PROTEIN 4.3 GM/DL (6.4-8.2)
[2018-08-20] MEDS ORDERED: CALCIUM GLUCONATE 1,000 MG in D5W MINI-BAG PLUS 100 ML IV ONE ×2 (07:15→08:30)
[2018-08-20] MEDS: ENOXAPARIN 40 MG/0.4 ML SYRINGE (J1650) SC SCH (07:34)
[2018-08-20] MEDS ORDERED: CALCIUM GLUCONATE 1,000MG/10ML VIAL (100MG/ML) (J0610) As Ordered ONE (08:48)
[2018-08-20] MEDS ORDERED: KETOROLAC 30 MG/ML VIAL (J1885) As Ordered ONE (08:48)
[2018-08-20] MEDS ORDERED: KETOROLAC 30 MG/ML VIAL (J1885) IV ONE (09:00)
--- NOTE | 2018-08-20 09:08 | IPNPDOC ---
Text Note Date of Service The patient was seen on 08/20/18. NOTE No acute events overnight. Denies nausea, emesis, or fevers. Her abd pain is not improving. VSSAF NAD abd - soft, slight tenderness RUQ only, no rebound or guarding labs - below LFTS are all improving A) 43y/o female with acute cholecystitis with elevated LFTs that are improving DM HTN P) abx plan on OR this am for lap john since her pain is not improving. no changes to H+P consent is signed Brian Talavera DO A-FIB/CHADSVASC A-FIB History Current/History of A-Fib/PAF?: No VS,Fishbone, I+O VS, Fishbone, I+O Laboratory Tests 08/20/18 05:57 Red Blood Count 3.56 L, Mean Corpuscular Volume 90.7, Mean Corpuscular Hemoglobin 28.4, Mean Corpuscular Hemoglobin Concent 31.3 L, Red Cell Distribution Width 15.2 H, Calcium Level 5.2 #*L, Aspartate Amino Transf (AST/SGOT) 45 H, Alanine Aminotransferase (ALT/SGPT) 95 H, Alkaline Phosphatase 94, Total Bilirubin 0.3, Total Protein 4.3 L, Albumin 1.4 #L Vital Signs Date Time Temp Pulse Resp B/P (MAP) Pulse Ox O2 Delivery O2 Flow Rate FiO2 08/20/18 08:00 18 08/20/18 06:00 96.9 102 142/82 (102) 93 08/18/18 20:38 Room Air I&O- Last 24 Hours up to 6 AM 08/20/18 06:00 Intake Total 720 ml Balance 720 ml CE TALAVERA DO August 20, 2018 09:08
[2018-08-20] MEDS ORDERED: BUPIVACAINE/EPIN 0.25% 30 ML VIAL As Ordered ONE (10:53)
[2018-08-20] MEDS ORDERED: LIDOCAINE 2% INJ 100 MG/5 ML SDV (FOR ANES.) As Ordered ONE (11:21)
[2018-08-20] MEDS ORDERED: fentaNYL 250 MCG/5 ML INJECTION (J3010) As Ordered ONE (11:21)
[2018-08-20] MEDS ORDERED: PROPOFOL 200 MG/20 ML VIAL As Ordered ONE (11:21)
[2018-08-20] MEDS ORDERED: ONDANSETRON 4MG/2ML VIAL (J2405) As Ordered ONE ×2 (11:21→12:12)
[2018-08-20] MEDS ORDERED: MIDAZOLAM INJ 2 MG/2 ML VIAL (J2250) As Ordered ONE (11:21)
[2018-08-20] MEDS ORDERED: dexameTHASONE 4 MG/ML 1ML VIAL (J1100) As Ordered ONE (11:21)
[2018-08-20] MEDS ORDERED: ROCURONIUM BROMIDE 50 MG/5 ML VIAL As Ordered ONE (11:21)
[2018-08-20] MEDS ORDERED: SUGAMMADEX SODIUM 500 MG/5 ML VIAL (BRIDION) As Ordered ONE (11:42)
[2018-08-20] MEDS ORDERED: NORCO, ANEXSIA 5/325MG TABLET (HYDROcodone/ACETAMINOPHEN) As Ordered ONE ×2 (12:12→12:31)
[2018-08-20] MEDS ORDERED: fentaNYL 100 MCG/2 ML INJECTION (J3010) IV PRN (12:15)
[2018-08-20] MEDS ORDERED: ONDANSETRON 4MG/2ML VIAL (J2405) IV PRN (12:15)
[2018-08-20] MEDS ORDERED: LR 1,000 ML IV SCH (12:15)
--- NOTE | 2018-08-20 12:29 | CR ---
DATE OF CONSULTATION: 08/18/2018 CHIEF COMPLAINT: Right upper quadrant pain. HISTORY OF PRESENT ILLNESS: The patient is a 43-year-old female presented with sudden onset of right upper quadrant abdominal pain that started in the evening of 08/17/2018. She had lack of appetite, some nausea and vomiting, and increasing pain in the right upper quadrant radiating around to the back, so she came into the emergency room (ER) for evaluation. She denies any fevers or chills. No more nausea or vomiting since reaching the emergency room but she is having persistent pain on the right upper quadrant that will not go away. No recent travel or trauma. No prior history of right upper quadrant pain in the past. PAST MEDICAL HISTORY: 1. Diabetes. 2. Hypertension. 3. Migraines. 4. Depression. 5. Anxiety. 6. Gastroesophageal reflux disease (GERD). 7. Bipolar. PAST SURGICAL HISTORY: 1. Two right hip surgeries. 2. (C) section. 3. Right shoulder surgery. 4. Carpal tunnel release. 5. Left elbow nerve surgery. ALLERGIES: AMOXICILLIN, METFORMIN. HOME MEDICATIONS: Please see med rec. SOCIAL HISTORY: Smokes a pack a day. Denies any drug abuse. FAMILY HISTORY: Noncontributory. REVIEW OF SYSTEMS: Pertinent positives and negatives as stated in the HPI. PHYSICAL EXAMINATION: General: Alert and oriented times three. No acute distress. Vital signs: Temperature 98.6, pulse 99, respirations 18, blood pressure 143/82, pulse oximetry 92% room air. HEENT: Pupils equal, round and react to light and accommodation. Heart: S1, S2, regular rate and rhythm. Lungs: Clear to auscultation bilaterally. Abdomen: Soft, slight tenderness to palpation right upper quadrant. No rebound, guarding or rigidity. Extremities: No clubbing, cyanosis or edema. LABORATORY DATA: White count 14.3, hemoglobin 14.8, and platelets 231. Total bilirubin 1.2, direct 0.8, AST 5.4, ALT 228, alkaline phosphatase 182, lipase 70. IMAGING: Gallbladder ultrasound shows cholelithiasis with multiple mobile shadowing stones, positive sonographic Lee sign that may reflect acute cholecystitis. There is no wall thickening and no pericholecystic fluid. ASSESSMENT AND PLAN: The patient is a 43-year-old female with symptomatic cholelithiasis, possibly early acute cholecystitis due to elevated liver enzymes and hyperbilirubinemia. Recommendation is to treat medically for now, IV fluids, antibiotics, pain control. If her pain improves and her labs improve by morning, she be discharged home. If her labs get worse, then we will consult GI for possible endoscopic retrograde cholangiopancreatography (ERCP). If pain control becomes an issue and her labs are normal, then we may consider inpatient cholecystectomy prior to discharge.
[2018-08-20] MEDS ORDERED: fentaNYL 100 MCG/2 ML INJECTION (J3010) As Ordered ONE (12:31)
--- NOTE | 2018-08-20 13:05 | RO ---
DATE OF PROCEDURE: 08/20/2018 PREOPERATIVE DIAGNOSIS: Acute cholecystitis. POSTOPERATIVE DIAGNOSIS: Acute cholecystitis. PROCEDURE: Laparoscopic cholecystectomy. SURGEON: Ayaz Talavera DO COORDINATOR CARDIOPULMONARY SERVICES: None. ANESTHESIA: General ESTIMATED BLOOD LOSS: 5 mL COMPLICATIONS: None. INDICATION FOR THE PROCEDURE: The patient is a 43-year-old female who presents with severe right upper quadrant abdominal pain for the past 3 days. Labs have improved but her pain has stayed significant, therefore recommendation was to proceed laparoscopic possible open cholecystectomy. Risks and benefits of the procedure not limited to but including bleeding, infection, hernia formation, damage to surrounding structure and need for further surgery were discussed in detail with the patient, informed was obtained and the procedure was planned. PROCEDURE The patient brought back to operating room one after sufficient sedation and the abdomen was sterilely prepped and draped. Next, a time-out was done to confirm proper patient and proper procedure. Following that, a stab incision was made in left lower quadrant. Veress needle inserted and the abdomen was insufflated with 50 mHg. Next, a 5 mm supraumbilical midline incision was made and a 5 mm OptiVu port was used to gain access to the abdomen. Once the abdomen was entered, Veress needle site was examined. There were no signs of any injury. Veress needle was then removed. An 11 mm port was then placed subxiphoid to the left of midline and two 5 mm ports in the right upper quadrant. The fundus of the gallbladder was identified underneath some inflamed omentum. This was gently held up in the air, it was too dilated to hold onto so I had to place a hole in the top of the gallbladder and use a suction device to empty it out. Once that was completed we were able to hold the gallbladder up in the air, carefully dissect it down towards the neck. Once I hit the neck, I made an incision into the thickened peritoneum surrounding the gallbladder. Found the gallbladder wall, dissected circumferentially around there and found the artery and the cystic duct. I was able to continue blunt dissection circumferentially around the duct and the artery. They were both doubly clipped and cut. Gallbladder was then taken off the gallbladder fossa using electrocautery. Once gallbladder was removed it was brought out through the subxiphoid port site in 10 mm EndoCatch bag. A #19-Armenian Tj drain was then placed in the gallbladder fossa, brought through the most lateral right port site. The abdomen was then deflated. Skin incisions closed with #4-0 Vicryl subcuticular sutures. Drain was sutured in place with #2-0 silk. The abdomen was then cleaned and dried. 4x4 and tape were applied thus ending the procedure.
--- NOTE | 2018-08-20 13:30 | IPNPDOC ---
Date Seen The patient was seen on 08/20/18. Progress Note SUBJECTIVE: Patient doesn't she is having continued pain associated with nausea but no vomiting she denies diarrhea fevers chills chest pressure PHYSICAL EXAMINATION: VITAL SIGNS: Please see below GENERAL: Pleasant obese female middle age sitting on the edge of her bed awake alert oriented speaking in complete sentences no acute distress he is accompanied by her mother she is laughing HEENT: Moist mucous membranes no elevation and CVP CARDIOVASCULAR: S1 S2 regular no additional heart sounds appreciated. RESPIRATORY: Clear to auscultation bilaterally. ABDOMINAL: Bowel sounds present abdomen soft and mild tenderness in the right upper quadrant with positive Lee sign EXTREMITIES: No clubbing cyanosis or edema NEUROLOGICAL: Spontaneously moves all 4 extremities cranial 2 through 12 grossly intact no gross focal deficits appreciated PSYCHOLOGICAL: Appropriate LABORATORY DATA: See below. MICROBIOLOGY: Please see below. IMAGING: Gallbladder ultrasound:1. Cholelithiasis with multiple mobile shadowing gallstones and a positive sonographic Lee's sign that may reflect acute cholecystitis. 2. No intrahepatic biliary dilatation but there is a common duct 6.8 mm which is upper limits of normal for size in this age group. The distal common duct is not visible. The pancreas is not visible on this study. Distal common duct filling defects are not excluded. 3. Right kidney without stone or hydronephrosis ASSESSMENT & PLAN:. This is a 43-year-old female with acute cholecystitis and associated hepatitis PROBLEMS: 1 acute cholecystitis and hepatitis: Appears to be resolving her labs are approaching baseline she did have significant persistent pain was unable to tolerate by mouth and as such Dr. Talavera is to the operating room today. General surgery appreciated. The time being she is nothing by mouth on IV fluids which I will DC following operative surgery, she remains on empiric antibiotics 2. Diabetes: As she is nothing by mouth I'll provide her with sliding scale every 6 and fingersticks and hyperglycemia protocol and provide her with her gabapentin to prevent any withdrawal symptoms 3. Hypertension: Postop resume and monitor blood pressure 4. Anxiety depression: Resume home medications. 5. Dyslipidemia: Lipids I will hepatitis that he does appear to be resolving and unrelated to her statin use. Consider resuming 6. Gastroesophageal reflux disease: I will provide her with a PPI IV DVT PROPHYLAXIS: Lovenox DISPOSITION: Likely disposition once tolerating a diet and passing gas as per surgery VS, I&O, 24H, Fishbone Vital Signs/I&O Vital Signs Date Time Temp Pulse Resp B/P (MAP) Pulse Ox O2 Delivery O2 Flow Rate FiO2 08/20/18 12:45 98.3 108 18 145/65 (91) 94 08/18/18 20:38 Room Air I&O- Last 24 Hours up to 6 AM 08/20/18 06:00 Intake Total 720 ml Balance 720 ml Laboratory Data 24H LABS Laboratory Tests 2 08/19/18 17:06: Bedside Glucose (Misc Panel) 163H 08/20/18 05:08: Bedside Glucose (Misc Panel) 178H 08/20/18 05:57: Nucleated Red Blood Cells % (auto) 0.0, Anion Gap 10, Glomerular Filtration Rate > 60.0, Blood Urea Nitrogen 14, Creatinine 0.52L, Sodium Level 145, Potassium Level 3.4L, Chloride Level 118H, Carbon Dioxide Level 17L, Calcium Level 5.2#*L, Aspartate Amino Transf (AST/SGOT) 45H, Alanine Aminotransferase (ALT/SGPT) 95H, Alkaline Phosphatase 94, Total Bilirubin 0.3, Total Protein 4.3L, Albumin 1.4#L, Albumin/Globulin Ratio 0.48L 08/20/18 07:22: Whole Blood Ionized Calcium 4.1L 08/20/18 13:20: Bedside Glucose (Misc Panel) 223H CBC/BMP Laboratory Tests 08/20/18 05:57 Red Blood Count 3.56 L, Mean Corpuscular Volume 90.7, Mean Corpuscular Hemoglobin 28.4, Mean Corpuscular Hemoglobin Concent 31.3 L, Red Cell Distribution Width 15.2 H, Calcium Level 5.2 #*L, Aspartate Amino Transf (AST/SGOT) 45 H, Alanine Aminotransferase (ALT/SGPT) 95 H, Alkaline Phosphatase 94, Total Bilirubin 0.3, Total Protein 4.3 L, Albumin 1.4 #L Microbiology Microbiology 08/18/18 Blood Culture - Preliminary, Resulted No growth after 24 hours . All specim... 08/18/18 Blood Culture - Preliminary, Resulted No growth after 24 hours . All specim... SANTY KULKARNI MD August 20, 2018 13:30
[2018-08-20] MEDS: ONDANSETRON 4MG/2ML VIAL (J2405) IV PRN (13:33)
[2018-08-20] MEDS ORDERED: LISINOPRIL 10 MG TAB PO SCH (21:00)
[2018-08-20] MEDS ORDERED: ATENOLOL 50 MG TAB PO SCH (21:00)
[2018-08-20] MEDS ORDERED: FUROSEMIDE 20 MG TAB PO SCH (21:00)
[2018-08-20] MEDS ORDERED: PRAVASTATIN 20 MG TAB PO SCH (21:00)
[2018-08-20] MEDS ORDERED: buPROPion **XL** TABLET 150MG (WELLBUTRIN XL) PO SCH (21:00)
[2018-08-20] MEDS ORDERED: DULoxetine 30 MG CAP (CYMBALTA) PO SCH (21:00)
[2018-08-20] MEDS ORDERED: HumaLOG INSULIN (NovoLOG) PER UNIT SC SCH (21:00)
[2018-08-20] MEDS ORDERED: OMEPRAZOLE 20 MG CAP PO SCH (21:00)
[2018-08-20] MEDS: PANTOPRAZOLE 40MG INJ (PROTONIX) (C9113) IV SCH (21:16)
[2018-08-20] MEDS: QUEtiapine FUMARATE 50 MG TAB PO SCH (21:18)
[2018-08-20] MEDS: IBUPROFEN 800 MG TAB PO PRN (21:20)
[2018-08-20] MEDS: GABAPENTIN 300 MG CAP PO SCH (21:20)
[2018-08-21] MEDS ORDERED: LOPERAMIDE 2 MG CAP PO ONE (01:45)
[2018-08-21] MEDS: MEROPENEM INJ 1 GM in APPROPRIATE DILUENT 1 EA IV SCH ×2 (01:50→10:43)
[2018-08-21] MEDS: NORCO, ANEXSIA 5/325MG TABLET (HYDROcodone/ACETAMINOPHEN) PO PRN (01:53)
[2018-08-21 02:00] VITALS: BP 135/80
[2018-08-21 06:00] VITALS: BP 129/63
[2018-08-21] MEDS: IBUPROFEN 800 MG TAB PO PRN (06:02)
[2018-08-21 06:11] LABS: HEMATOCRIT 35.9 % (36.0-47.0); HEMOGLOBIN 11.6 g/dl (12.0-15.5); MEAN CORPUSCULAR HEMOGLOBIN 27.8 pg (27.0-33.0); MEAN CORPUSCULAR HGB CONC 32.3 g/dl (32.0-36.5); MEAN CORPUSCULAR VOLUME 85.9 fl (80.0-96.0); PLATELET COUNT, AUTOMATED 238 10^3/uL (150-450); RED BLOOD COUNT 4.18 10^6/uL (4.00-5.40); WHITE BLOOD COUNT 11.3 10^3/uL (4.0-10.0)
[2018-08-21 06:44] LABS: ALT/SGPT 100 U/L (12-78); BILIRUBIN,TOTAL 0.4 MG/DL (0.2-1.0); BLOOD UREA NITROGEN 20 MG/DL (7-18); CALCIUM LEVEL 7.9 MG/DL (8.5-10.1); CARBON DIOXIDE LEVEL 21 MEQ/L (21-32); CHLORIDE LEVEL 106 MEQ/L (98-107); GLOMERULAR FILTRATION RATE > 60.0 (>58); GLUCOSE, FASTING 227 MG/DL (70-100); POTASSIUM SERUM 3.9 MEQ/L (3.5-5.1); SODIUM LEVEL 137 MEQ/L (136-145); TOTAL PROTEIN 5.8 GM/DL (6.4-8.2)
[2018-08-21] MEDS: ENOXAPARIN 40 MG/0.4 ML SYRINGE (J1650) SC SCH (08:06)
[2018-08-21] MEDS: HumaLOG INSULIN (NovoLOG) PER UNIT SC SCH (08:09)
--- NOTE | 2018-08-21 09:02 | IPNPDOC ---
Text Note Date of Service The patient was seen on 08/21/18. NOTE No acute events overnight. Denies nausea, emesis, or fevers. Pain is much imp roved. VSSAF NAD abd - soft, TTP appropriate, incisions c/d/i, drain is serosanguinous labs - below A) 43y/o female with acute cholecystitis with elevated LFTs that are improving POD#1 s/p lap john DM HTN P) reg diet abx f/u in office to get drain out Brian Talavera DO A-FIB/CHADSVASC A-FIB History Current/History of A-Fib/PAF?: No VS,Fishbone, I+O VS, Fishbone, I+O Laboratory Tests 08/21/18 05:23 Red Blood Count 4.18, Mean Corpuscular Volume 85.9, Mean Corpuscular Hemoglobin 27.8, Mean Corpuscular Hemoglobin Concent 32.3, Red Cell Distribution Width 14.9 H, Calcium Level 7.9 #L, Aspartate Amino Transf (AST/SGOT) 46 H, Alanine Aminotransferase (ALT/SGPT) 100 H, Alkaline Phosphatase 142 H, Total Bilirubin 0.4, Total Protein 5.8 #L, Albumin 2.0 #L Vital Signs Date Time Temp Pulse Resp B/P (MAP) Pulse Ox O2 Delivery O2 Flow Rate FiO2 08/21/18 06:00 97.0 86 20 129/63 (85) 95 08/18/18 20:38 Room Air I&O- Last 24 Hours up to 6 AM 08/21/18 06:00 Intake Total 3950 ml Output Total 1380 ml Balance 2570 ml CE TALAVERA DO August 21, 2018 09:02
[2018-08-21] MEDS ORDERED: HYDR-4571 PO (09:03)
[2018-08-21 10:57] LABS: HEPATITIS A ANTIBODY IGM NEGATIVE (NEGATIVE); HEPATITIS B CORE ANTIBODY IGM NEGATIVE (NEGATIVE); HEPATITIS B SURFACE ANTIGEN NEGATIVE (NEGATIVE); HEPATITIS C VIRUS ABY INDEX < 0.0 INDEX (<0.8)
--- NOTE | 2018-08-21 14:14 | DS.PDOC ---
Discharge Summary General Date of Admission August 18, 2018 at 18:29 Date of Discharge 08/21/18 Primary Care Physician: CARLOS LYON MD Attending Physician: SANTY KULKARNI MD Specialist/Consultants Involve: CE PETERSON DO Discharge Summary PROCEDURES PERFORMED DURING STAY: Laparoscopic Cholecystectomy ADMITTING DIAGNOSES: 1. Acute Cholecystitis 2. Hypertension 3. Anxiety/Depression 4. Dyslipidemia 5. GERD DISCHARGE DIAGNOSES: 1. Acute Cholecystitis 2. Hypertension 3. Anxiety/Depression 4. Dyslipidemia 5. GERD COMPLICATIONS/CHIEF COMPLAINT: Acute Cholecystis Due To Biliary Calculas. HISTORY OF PRESENT ILLNESS: Patient is a 43 year old female with a past medical history significant for diabetes mellitus type 2, hypertension, migraines, and depression/anxiety who presented to the [facility] ER with complaint of right upper quadrant abdominal that had started on 08/17/2018. Patient stated that her pain continued to worsen and she was unable to eat. She admitted to nausea but denied any vomiting. She described the pain as stabbing and intermittent in her right upper quadrant. She denied any fevers or chills. The patient presented to the ER as she was developing worsening pain. In the ER the patient received CMP which demonstrated elevated transaminase. The patient received a gallbladder ultrasound which demonstrated cholelithiasis with multiple mobile shadowing gallstones and a positive sonographic Lee's sign. There was no intrahepatic biliary dilatation but there was a common duct of 6.8 the upper limits of normal. The patient was felt to likely have acute cholecystitis and was admitted to hospitalist service for further evaluation and management. HOSPITAL COURSE: Once admitted the patient was continued on IV fluids. She was evaluated by General Surgery who recommended medical management with IV fluids and antibiotics. Patient continued to have worsening pain despite IV and oral pain medications. Due to her continued pain the patient was taken to the operating room where she had a laparoscopic cholecystectomy. After surgical intervention the patient noticed improvement in her pain. She was able to tolerate a full diet and subsequently discharged with pain medication and follow-up with General Surgery on 08/24/18. DISCHARGE MEDICATIONS: Please see below. ALLERGIES: Please see below. PHYSICAL EXAMINATION ON DISCHARGE: VITAL SIGNS: Please see below. GENERAL: Awake, alert, and oriented. Appears in no acute distress. Sitting up in bed comfortably eating breakfast HEENT: Atraumatic, normocephalic. Eyes are nonicteric. Trachea is midline. NECK: No palpable cervical chain lymphadenopathy CARDIOVASCULAR EXAMINATION: Normal S1, S2. Regular rate and rhythm. No clicks, rubs, or murmurs. RESPIRATORY EXAMINATION: Clear vesicular breath sounds bilaterally with good respiratory effort. No wheezes, rhonchi or rales. ABDOMINAL EXAMINATION: Obese. Soft. Nondistended. Slight tenderness to palpation of the abdomen. No rebound tenderness or guarding. Positive bowel sounds t hroughout EXTREMITIES: No edema. Full and equal pulses in bilateral upper and lower extremities SKIN: No rashes or lesions NEUROLOGICAL EXAMINATION: No focal neurological deficits PSYCHIATRIC EXAMINATION: Mood and affect appear appropriate LABORATORY DATA: Please see below. IMAGING: GALLBLADDER ULTRASOUND: 08/18/2018. Clinical history: Right upper quadrant abdominal pain. Findings: There are no prior pertinent studies. Sonographic evaluation of the liver shows it to be homogeneous in echotexture. I do not see discrete hepatic mass or intrahepatic biliary dilatation. No adjacent ascites. Gallbladder shows multiple echogenic stones with shadowing. These appear mobile. Wall thickness normal. There is no pericholecystic fluid. However, there is a positive sonographic Lee's sign. Common duct is 6.8 mm without a visible filling defect. This is at the upper limits of normal in this age group. Pancreas is not identified well on this study due to extensive gas shadowing. Right kidney is 12.3 x 5.5 x 6.6 cm without hydronephrosis or definite stone. Impression: 1. Cholelithiasis with multiple mobile shadowing gallstones and a positive sonographic Lee's sign that may reflect acute cholecystitis. 2. No intrahepatic biliary dilatation but there is a common duct 6.8 mm which is upper limits of normal for size in this age group. The distal common duct is not visible. The pancreas is not visible on this study. Distal common duct filling defects are not excluded. 3. Right kidney without stone or hydronephrosis. Electronically Signed by Jim De Santiago MD 08/19/2018 11:38 A DD: Jim De Santiago MD 08/18/18 1640 DT: TANYA 08/19/18 0738 PROGNOSIS: GOOD ACTIVITY: [As tolerated]. Avoid lifting greater than 20 lbs. DIET: As tolerated DISCHARGE PLAN: Patient is to be discharged home with follow-up General Surgery on 08/24/18. She is to follow orders as outlined by General Surgery including no baths for 5 days (showers ok), no lifting more than 20 lbs. She is to call the General Surgery office with any questions or if her drain turns green. DISPOSITION: Home, Self-Care. DISCHARGE INSTRUCTIONS: 1. Follow-up with General Surgery 08/24/18 2. Follow-up with Primary Care Provider 2-4 weeks DISCHARGE CONDITION: [Stable]. TIME SPENT ON DISCHARGE: Greater than 35 minutes. Vital Signs/I&Os Vital Signs Date Time Temp Pulse Resp B/P (MAP) Pulse Ox O2 Delivery O2 Flow Rate FiO2 08/21/18 06:00 97.0 86 20 129/63 (85) 95 08/18/18 20:38 Room Air I&O- Last 24 Hours up to 6 AM 08/21/18 06:00 Intake Total 3950 ml Output Total 1380 ml Balance 2570 ml Laboratory Data Labs 24H Laboratory Tests 2 08/20/18 20:05: Bedside Glucose (Misc Panel) 319H 08/21/18 05:23: Nucleated Red Blood Cells % (auto) 0.0, Anion Gap 10, Glomerular Filtration Rate > 60.0, Blood Urea Nitrogen 20H, Creatinine 0.80#, Sodium Level 137#, Potassium Level 3.9, Chloride Level 106, Carbon Dioxide Level 21, Calcium Level 7.9#L, Aspartate Amino Transf (AST/SGOT) 46H, Alanine Aminotransferase (ALT/SGPT) 100H, Alkaline Phosphatase 142H, Total Bilirubin 0.4, Total Protein 5.8#L, Albumin 2.0#L, Albumin/Globulin Ratio 0.53L CBC/BMP Laboratory Tests 08/21/18 05:23 Red Blood Count 4.18, Mean Corpuscular Volume 85.9, Mean Corpuscular Hemoglobin 27.8, Mean Corpuscular Hemoglobin Concent 32.3, Red Cell Distribution Width 14.9 H, Calcium Level 7.9 #L, Aspartate Amino Transf (AST/SGOT) 46 H, Alanine Aminotransferase (ALT/SGPT) 100 H, Alkaline Phosphatase 142 H, Total Bilirubin 0.4, Total Protein 5.8 #L, Albumin 2.0 #L FSBS Laboratory Tests Test 08/20/18 20:05 Range/Units Bedside Glucose (Misc Panel) 319 70-105 MG/DL Microbiology Microbiology 08/18/18 Blood Culture - Preliminary, Resulted No Growth after 48 hours. All Specime... 08/18/18 Blood Culture - Preliminary, Resulted No Growth after 48 hours. All Specime... Discharge Medications Scheduled Atenolol (Atenolol) 50 Mg Tab, 50 MG PO QHS, (Reported) Bupropion HCl (Bupropion Xl) 150 Mg Tab.er.24h, 150 MG PO QHS, (Reported) Duloxetine HCl (Duloxetine HCl) 60 Mg Capsule.dr, 60 MG PO QHS, (Reported) Ertugliflozin Pidolate (Steglatro) 15 Mg Tablet, 15 MG PO QHS, (Reported) Furosemide (Furosemide) 20 Mg Tablet, 20 MG PO QHS, (Reported) Gabapentin (Gabapentin) 600 Mg Tablet, 2,400 MG PO QHS, (Reported) Insulin Glargine,Hum.rec.anlog (Basaglar Kwikpen U-100) 100 Unit/1 Ml Insuln.pen, 45 UNIT SC QHS, (Reported) RX IS FOR 45 UNITS BID, BUT PATIENT ONLY TAKES QHS Insulin Lispro (Admelog) 100 Unit/1 Ml Vial, 1 DOSE SC AC, (Reported) PER SLIDING SCALE Lactobacillus Combo No.10 (Probiotic) 1 Each Capsule, 1 CAP PO QHS, (Reported) Lisinopril (Lisinopril) 10 Mg Tablet, 10 MG PO QHS, (Reported) Multivitamin (Multivitamins) 1 Each Capsule, 1 CAP PO QHS, (Reported) Omeprazole (Omeprazole) 20 Mg Cap, 20 MG PO QHS, (Reported) Pravastatin Sodium (Pravachol) 20 Mg Tab, 20 MG PO QHS, (Reported) Quetiapine Fumarate (Quetiapine Fumarate) 50 Mg Tablet, 50 MG PO QHS, (Reported) Scheduled PRN Hydrocodone/Acetaminophen (Hydrocodone-Acetamin 5-325 mg) 1 Each Tablet, 1 TAB PO Q6HP PRN for MILD/MODERATE PAIN (PS 1-7) Ibuprofen (Ibuprofen) 800 Mg Tab, 800 MG PO TID PRN for PAIN, (Reported) Allergies Coded Allergies: amoxicillin (Verified Allergy, Mild, RASH, 08/18/18) metformin (Verified Adverse Reaction, Mild, DIARRHEA, 08/18/18) GME ATTESTATION GME ATTESTATION My faculty preceptor for this patient encounter was physically present during the encounter and was fully available. All aspects of the patient interview, examination, medical decision making process, and medical care plan development were reviewed and approved by the faculty preceptor. The faculty preceptor is aware and concurs with the plan as stated in the body of this note and will attest to such by his/her cosignature. ATTENDING NOTE I saw and evaluated the patient. I agree with the findings and plan of care as documented in the resident's note. I spent 45 minutes coordinating this patient's discharge. PRABHU MCDONALD DO August 21, 2018 14:14 SANTY KULKARNI MD August 21, 2018 18:08
== END 2018-08-21 11:30 | disposition home or self-care (01) | DRG 263 ==
LOC: M ED 14:12 → M ED INP 18:29 → M MS5PR 20:45
PROVIDERS: ADMIT Internal Medicine; ATTEND Internal Medicine
PROC: 0FT44ZZ Resection of Gallbladder, Percutaneous Endoscopic Approach (ICD-10-PCS; principal; 2018-08-20 09:00)
DX: K80.62 Calculus of gallbladder and bile duct with acute cholecystitis without obstruction (principal); I10 Essential (primary) hypertension; F41.9 Anxiety disorder, unspecified; F32.9 Major depressive disorder, single episode, unspecified; E78.5 Hyperlipidemia, unspecified; K21.9 Gastro-esophageal reflux disease without esophagitis; E11.9 Type 2 diabetes mellitus without complications; G43.909 Migraine, unspecified, not intractable, without status migrainosus; Z79.899 Other long term (current) drug therapy; Z88.0 Allergy status to penicillin; Z88.8 Allergy status to other drugs, medicaments and biological substances; Z91.19 Patient's noncompliance with other medical treatment and regimen; F17.200 Nicotine dependence, unspecified, uncomplicated

== ENCOUNTER → 2018-08-31 | Outpatient (REF) | payer OTHER ==
[~2018-08-31] MED LIST changes: +ADME100I SC; +BASA100I SC; +BUPR-365 PO; +CVS1CAP2 PO; +DULO60CA35 PO; +FURO20TA2 PO; +GABA600T4 PO; +HYDR-4571 PO; +LISI10TA4 PO; +MULTCAP PO; +PRAV20TA2; +QUET5TAB PO; +STEG15TA PO
[2018-08-31 20:40] LABS: ALBUMIN 2.4 GM/DL (3.2-5.2); ALT/SGPT 32 U/L (12-78); BILIRUBIN,TOTAL 0.2 MG/DL (0.2-1.0); BLOOD UREA NITROGEN 17 MG/DL (7-18); CALCIUM LEVEL 8.7 MG/DL (8.5-10.1); CARBON DIOXIDE LEVEL 31 MEQ/L (21-32); CHLORIDE LEVEL 103 MEQ/L (98-107); CREATININE FOR GFR 0.87 MG/DL (0.55-1.30); FREE T4 0.77 NG/DL (0.76-1.46); GLOMERULAR FILTRATION RATE > 60.0 (>58); GLUCOSE, FASTING 198 MG/DL (70-100); MAGNESIUM LEVEL 2.5 MG/DL (1.8-2.4); NT-PRO BNP 1738 PG/ML (<125); SODIUM LEVEL 140 MEQ/L (136-145); TOTAL PROTEIN 6.2 GM/DL (6.4-8.2)
[2018-08-31 20:56] LABS: HEMOGLOBIN A1c 8.7 %
== END ==
LOC: M SFHCLERA 14:43
PROVIDERS: ATTEND Family Medicine
DX: E11.21 Type 2 diabetes mellitus with diabetic nephropathy (principal); R60.9 Edema, unspecified

== ENCOUNTER → 2018-09-18 | Outpatient (CLI) | payer OTHER ==
--- NOTE | 2018-09-18 21:43 | ECHO ---
DATE OF PROCEDURE: 09/18/2018 REFERRING PHYSICIAN: Dr. Rahel Shore. INDICATION: Edema. Height 160 cm, weight 102 kg. MEASUREMENTS: IVS: 1.4 LV: 4.3 LVPW: 1.4 LA: 4.1 Aorta: 2.4 Mitral E wave velocity: 133 A wave: 113 E prime septal: 6.0 E prime lateral: 6.6 IVC: 1.8 FINDINGS: The study is somewhat limited technical quality corresponding to patient's body habitus. The patient is in sinus rhythm. Left ventricle is of normal size and systolic function, estimated left ventricular ejection fraction (LVEF) 70-75%. Mild to moderate left ventricular hypertrophy (LVH) is noted. Right ventricle appears normal. Left atrium is at least mildly enlarged. Right atrium appears normal. Aortic and tricuspid valves appear normal. Mitral valve exhibits degenerative abnormalities with mitral annular calcifications. Pulmonic valve was not visualized. No pericardial effusion is noted. Inferior vena cava is normal size. Aortic root, aortic arch and abdominal aorta appear normal. Doppler interrogation of aortic valve reveals no stenosis or insufficiency. There is trace mitral insufficiency. No tricuspid insufficiency is seen. Mitral inflow pattern and tissue Doppler imaging of mitral annulus revealed likely grade 2 diastolic dysfunction. CONCLUSIONS: 1. Study is of limited technical quality due to the patient's morbid obesity. 2. Normal left ventricular (LV) size with mild to moderate LVH and hyperdynamic LV systolic function. Grade 2 diastolic dysfunction. 3. No hemodynamically significant valvular disease. 4. Normal central venous pressure. 5. Unable to estimate pulmonary artery pressure. COMMENT: Subacute bacterial endocarditis (SBE) prophylaxis is not recommended. The study is consistent with either hypertensive heart disease or if the patient does not carry a history of hypertension, then diffuse form of hypertrophic cardiomyopathy should be considered in differential diagnosis. The study does not answer the question of etiology of peripheral edema, seems less likely to be due to congestive heart failure.
== END ==
LOC: M CARPUL 10:29
PROVIDERS: ATTEND Family Medicine
DX: R60.9 Edema, unspecified (principal)

== ENCOUNTER 2019-01-05 12:15 | Emergency (ER) | payer OTHER ==
[~2019-01-05] VITALS: Ht 160 cm; Wt 104.5 kg
[~2019-01-05 12:15] MED LIST changes: -OMEP20CA3 PO; +OMEP20CA4 PO
[2019-01-05] MEDS ORDERED: CVS10CAP8 PO (12:32)
[2019-01-05] MEDS ORDERED: SPIR-10 PO (12:32)
[2019-01-05] MEDS ORDERED: IBUPROFEN 600 MG TAB PO ONE (13:15)
[2019-01-05] MEDS ORDERED: CYCL10TA PO (14:06)
[2019-01-05] MEDS ORDERED: IBUP-1022 PO (14:06)
[2019-01-05 14:15] VITALS: BP 140/76
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
== END 2019-01-05 14:24 | disposition home or self-care (01) ==
LOC: M ED 12:15
DX: S39.012A Strain of muscle, fascia and tendon of lower back, initial encounter (principal); S16.1XXA Strain of muscle, fascia and tendon at neck level, initial encounter; V49.40XA Driver injured in collision with unspecified motor vehicles in traffic accident, initial encounter; Y92.410 Unspecified street and highway as the place of occurrence of the external cause; E11.9 Type 2 diabetes mellitus without complications; I10 Essential (primary) hypertension; F17.210 Nicotine dependence, cigarettes, uncomplicated; Z88.0 Allergy status to penicillin; Z88.8 Allergy status to other drugs, medicaments and biological substances; Z91.048 Other nonmedicinal substance allergy status; Z79.899 Other long term (current) drug therapy

== ENCOUNTER → 2019-05-01 | Outpatient (CLI) | payer OTHER ==
[~2019-05-01] MED LIST changes: +CVS10CAP8 PO; +CYCL10TA PO; +IBUP-1022 PO; +OMEP1CAP73 PO; -OMEP20CA4 PO; +SPIR-10 PO
--- NOTE | 2019-05-02 02:58 | REP ---
Clinical: Right heel pain. Technique: AP, lateral, bilateral oblique views of the right foot. Findings: Osseous structures, joint spaces, and surrounding soft tissues are relatively normal for age. No acute or healed injury is appreciated. No significant arthritic changes are identified. Incidental peripheral vascular disease noted. Impression: 1. Essentially age-appropriate appearance to the osseous structures and surrounding soft tissues. 2. Evidence for peripheral vascular disease. Electronically Signed by Ashwin Yañez MD 05/02/2019 02:49 A
== END ==
LOC: M LRY 09:32
PROVIDERS: ATTEND Family Medicine
DX: M79.671 Pain in right foot (principal)

== ENCOUNTER → 2019-05-01 | Outpatient (REF) | payer OTHER ==
[2019-05-01 12:17] LABS: BASO # 0.1 10^3/uL (0.0-0.2); BASO % 0.8 % (0.0-1.0); EOS # 0.3 10^3/uL (0.0-0.5); EOS % 3.1 % (0.0-3.0); HEMOGLOBIN 14.6 g/dl (12.0-15.5); LYMPH # 2.2 10^3/uL (1.5-5.0); LYMPH % 25.7 % (24.0-44.0); MEAN CORPUSCULAR HEMOGLOBIN 27.8 pg (27.0-33.0); MEAN CORPUSCULAR HGB CONC 31.1 g/dl (32.0-36.5); MEAN CORPUSCULAR VOLUME 89.5 fl (80.0-96.0); MONO # 0.7 10^3/uL (0.0-0.8); NEUTROPHILS # 5.3 10^3/uL (1.5-8.5); NEUTROPHILS % 62.1 % (36.0-66.0); PLATELET COUNT, AUTOMATED 215 10^3/uL (150-450); RED BLOOD COUNT 5.25 10^6/uL (4.00-5.40); WHITE BLOOD COUNT 8.6 10^3/uL (4.0-10.0)
[2019-05-01 12:26] LABS: ALT/SGPT 26 U/L (12-78); BILIRUBIN,TOTAL 0.2 MG/DL (0.2-1.0); BLOOD UREA NITROGEN 24 MG/DL (7-18); C REACTIVE PROTEIN QUANTITATIV < 0.30 MG/DL (0.00-0.30); CARBON DIOXIDE LEVEL 28 MEQ/L (21-32); CHLORIDE LEVEL 100 MEQ/L (98-107); CHOLESTEROL LEVEL 198 MG/DL (<200); CHOLESTEROL RISK RATIO 6.827 (<5); CREATININE FOR GFR 1.02 MG/DL (0.55-1.30); GLOMERULAR FILTRATION RATE > 60.0 (>58); GLUCOSE, FASTING 360 MG/DL (70-100); HDL CHOLESTEROL 29 MG/DL (>40); NON-HDL-C 169 MG/DL; POTASSIUM SERUM 4.2 MEQ/L (3.5-5.1); SODIUM LEVEL 136 MEQ/L (136-145); TOTAL PROTEIN 6.1 GM/DL (6.4-8.2); TRIGLYCERIDES LEVEL 819 MG/DL (<150)
[2019-05-01 12:49] LABS: HEMOGLOBIN A1c 8.9 %
[2019-05-01 12:59] LABS: ERYTHROCYTE SEDIMENTATION RATE 22 mm/hr (0-20)
[2019-05-01 13:11] LABS: MAU/CREAT RATIO 1385.4 MCG/MG (0.0-30.0)
== END ==
LOC: M SFHCLERA 09:36
PROVIDERS: ATTEND Family Medicine
DX: E11.21 Type 2 diabetes mellitus with diabetic nephropathy (principal); D69.2 Other nonthrombocytopenic purpura

== ENCOUNTER 2019-05-14 22:13 | Emergency (ER) | payer OTHER ==
[~2019-05-14] VITALS: Ht 157.5 cm; Wt 108.2 kg
--- NOTE | 2019-05-14 23:47 | REPVR ---
PROCEDURE INFORMATION: Exam: US Duplex Right Lower Extremity Veins, Limited Exam date and time: 05/14/2019 11:16 PM Age: 44 years old Clinical indication: Pain; Leg, upper; Right; Prior surgery; Surgery date: 6+ months; Surgery type: Hip replacement; Additional info: Leg swelling/pain TECHNIQUE: Imaging protocol: Real-time Duplex ultrasound of the Right Lower Extremity with 2-D ch scale, color Doppler flow and spectral waveform analysis with image documentation. Limited exam was focused on the right lower extremity veins. COMPARISON: US Duplex, Ext,LOWER veins,unilat 04/01/2016 5:54 AM FINDINGS: Right deep veins: Unremarkable. The common femoral, femoral, proximal profunda femoral and popliteal veins are patent without thrombus. Normal Doppler waveforms. Normal compressibility and/or augmentation response. Right superficial veins: Unremarkable. Saphenofemoral junction is patent without thrombus. Soft tissues: Unremarkable. IMPRESSION: No DVT of the right lower extremity. Electronically signed by: Darrel Elias On 05/14/2019 23:46:50 PM
[2019-05-15 00:28] VITALS: BP 176/83
[2019-05-15 00:44] LABS: BASO # 0.1 10^3/uL (0.0-0.2); BASO % 0.6 % (0.0-1.0); EOS # 0.4 10^3/uL (0.0-0.5); EOS % 2.9 % (0.0-3.0); HEMATOCRIT 45.3 % (36.0-47.0); HEMOGLOBIN 14.9 g/dl (12.0-15.5); LYMPH # 2.9 10^3/uL (1.5-5.0); LYMPH % 24.6 % (24.0-44.0); MEAN CORPUSCULAR HEMOGLOBIN 28.5 pg (27.0-33.0); MEAN CORPUSCULAR HGB CONC 32.9 g/dl (32.0-36.5); MEAN CORPUSCULAR VOLUME 86.6 fl (80.0-96.0); MONO # 0.8 10^3/uL (0.0-0.8); MONO % 6.4 % (0.0-5.0); NEUTROPHILS # 7.8 10^3/uL (1.5-8.5); NEUTROPHILS % 65.2 % (36.0-66.0); PLATELET COUNT, AUTOMATED 256 10^3/uL (150-450); RED BLOOD COUNT 5.23 10^6/uL (4.00-5.40); WHITE BLOOD COUNT 11.9 10^3/uL (4.0-10.0)
[2019-05-15 01:18] LABS: ALBUMIN 3.1 GM/DL (3.2-5.2); ALT/SGPT 30 U/L (12-78); BILIRUBIN,DIRECT 0.1 MG/DL (0.0-0.2); BILIRUBIN,TOTAL 0.2 MG/DL (0.2-1.0); BLOOD UREA NITROGEN 14 MG/DL (7-18); CALCIUM LEVEL 8.8 MG/DL (8.5-10.1); CARBON DIOXIDE LEVEL 26 MEQ/L (21-32); CHLORIDE LEVEL 106 MEQ/L (98-107); CREATININE FOR GFR 0.83 MG/DL (0.55-1.30); GLOMERULAR FILTRATION RATE > 60.0 (>58); GLUCOSE, FASTING 189 MG/DL (70-100); POTASSIUM SERUM 3.9 MEQ/L (3.5-5.1); SODIUM LEVEL 140 MEQ/L (136-145); TOTAL PROTEIN 6.3 GM/DL (6.4-8.2)
[2019-05-15] MEDS ORDERED: METAL LOCK LOOP XX ONE (04:18)
--- NOTE | 2019-05-15 08:07 | ECGEPIP ---
[facility] - ED Test Date: 2019-05-15 Pat Name: WASHINGTON OLEA Department: Room: - Gender: Female [employer]: ROSS : 1975 Requested By: DC TAVERA Order Number: [id number] Reading MD: Roz Kemp Measurements Intervals [place] Rate: 94 P: 57 ID: [id number] QRS: 101 QRSD: 87 T: 55 QT: 363 QTc: 455 Interpretive Statements SINUS RHYTHM MARKED RIGHT AXIS DEVIATION SEPTAL MYOCARDIAL INFARCTION, PROBABLY OLD NSTTW abnormalities LOW VOLTAGE LIMB NO PRIOR Electronically Signed on 05-15-2019 8:07:08 EST by Roz Kemp
== END 2019-05-15 03:45 | disposition left against medical advice (07) ==
LOC: M ED 22:13
DX: Z53.21 Procedure and treatment not carried out due to patient leaving prior to being seen by health care provider (principal)

== ENCOUNTER → 2019-05-31 | Outpatient (CLI) | payer OTHER ==
--- NOTE | 2019-05-31 13:43 | REP ---
Emergency bilateral lower extremity arterial Doppler ultrasound: History: Peripheral vascular disease. Findings: Ankle brachial index on the right is somewhat low at 0.7. That on the left is normal at 1.0. Moderate to severe plaquing is observed bilaterally. Relatively normal triphasic waveforms are noted in the left lower extremity except in the distal posterior tibial artery which shows very slow monophasic flow. Monophasic waveforms are noted at and distal to the proximal SFA in the right lower extremity. Arteries are heavily calcified at the foot on the right. Right lower extremity arterial Doppler velocity chart: Right CF A 129 cm/S Profunda 127 Proximal SFA 139 Mid SFA 141 Distal SFA 38 Popliteal 38 Proximal AT A 23 Tibioperoneal trunk 41 Proximal HARD CANDY SPINNER 26 Distal HARD CANDY SPINNER 16 Distal AT A 11 Left lower extremity arterial Doppler velocity chart: Left CF A 132 cm/S Profunda 69 Proximal SFA 118 Mid SFA 113 Distal SFA 116 Popliteal 108 Proximal AT A 98 Tibioperoneal trunk 52 Proximal HARD CANDY SPINNER 58 Distal HARD CANDY SPINNER 5 Distal AT A 38 Electronically Signed by Matt Cardona MD 05/31/2019 01:35 P
== END ==
LOC: M RAD 12:01
PROVIDERS: ATTEND Surgery Vascular Surgery
DX: I70.213 Atherosclerosis of native arteries of extremities with intermittent claudication, bilateral legs (principal)

== ENCOUNTER → 2019-06-08 | Outpatient (CLI) | payer OTHER ==
[~2019-06-08] MED LIST changes: +HEPARIN 1,000 UNITS/ML 10ML VIAL (FOR RADIOLOGY& DIALYSIS ONLY)(J1644-10) As Ordered ONE; +ISOVUE-300 61% 50ML VIAL (Q9967) As Ordered ONE; +LIDOCAINE 1% MDV 20ML VIAL As Ordered ONE; +MIDAZOLAM INJ 2 MG/2 ML VIAL (J2250) As Ordered ONE; +fentaNYL 100 MCG/2 ML INJECTION (J3010) As Ordered ONE
--- NOTE | 2019-06-08 09:35 | ROOPDOC ---
[facility] Report Of Operation Report of Operation DATE OF PROCEDURE: 06/08/19 PREPROCEDURE DIAGNOSES: Atherosclerosis of the [place] arteries with nonhealing wound right heel POSTPROCEDURE DIAGNOSES: Same PROCEDURE: 1. Ultrasound-guided access left common femoral artery 2. Aortoiliofemoral arteriogram with right lower extremity runoff from selection of the right common femoral artery and popliteal artery 3. Angioplasty of the right distal SFA and popliteal artery with 3 x 200 [place] balloon 4. Completion arteriograms 5. Mynx closure left common femoral artery SURGEON: Waylon Valentine MD ANESTHESIA: Local anesthesia 13 mL lidocaine. Moderate intravenous conscious sedation was supervised by Dr. Valentine. The patient was independently monitor by registered nurse under the department of radiology using automated blood pressure, EKG, pulse oximetry. Detailed sedation record is permanently stored in the hospital information system. The following is a brief sedation record: Start time 08:02,. Time 08:51, Versed 1 mg IV, fentanyl 50 g IV, heparin 5000 units IV. CONTRAST: 52 mL Isovue-300 INDICATION FOR PROCEDURE: Ms. Parks is a very pleasant 44-year-old patient with atherosclerosis the [place] vessels, tobacco use, and a nonhealing wound on the posterior aspect of her right heel. Risks benefits and alternatives to an arteriogram potential intervention were explained to the patient and she is agreeable to proceed. Informed consent was obtained. INTERPRETATION: 1. Aortoiliofemoral segments are widely patent. There is no stenosis in the distal aorta, the common iliac artery, and external iliac artery or the hypogastric arteries bilaterally. Mild plaque is noted but not flow-limiting. The right common femoral artery profunda and SFA are widely patent but there is some mild disease in the SFA at Bassem's canal. There is a short segment occlusion and several areas of near occlusion in the popliteal artery and then what appears to be diminutive vessels but 3 vessel runoff to the foot. 2. After angioplasty of the right popliteal vein, we realized the distal part of the balloon was in a collateral that ran alongside the popliteal artery which was not noted on initial imaging. This resulted in a small amount of extravasation from the distal aspect of that collateral, which resolved with repeat angioplasty across the popliteal artery after confirming the wire in the correct location in the anterior tibial distally with a contrast injection. After three-minute inflation, there was still a small amount of extra, but when we repeated this is second time and held manual pressure on the posterior knee, and the extravasation resolved. Completion imaging revealed widely patent inflow through the popliteal artery with no stenosis residual, no extravasation, no embolization, no dissection. Runoff was intact to the tibial vessels to the foot. REPORT OF OPERATION: Patient was brought to the angiographic suite in stable condition. Her bilateral groins were prepped and draped in a sterile fashion. A timeout was performed. Sedation was administered without combination. Local anesthesia was administered to skin and subcutaneous tissue over the left common femoral artery and a microneedle was used to access the artery under ultrasound guidance. A wire was passed through this access and the needle was removed. A 4 Czech sheath was placed and flushed with saline. A Glidewire was advanced through this access into the aorta under fluoroscopic guidance and on the first catheter was advanced over the wire. In aortoiliofemoral arteriogram was performed. Please see interpretation above. We then went up and over the bifurcation with Glidewire and on the fluoroscopic and selected the right common femoral artery and right lower extremity runoff was performed. Please see i nterpretation above. We then were able to advance the Glidewire into the distal SFA and the sheath was exchanged for a 6 Czech 70 cm sheath and flushed with saline. 5000 units of heparin was given and allowed to circulate. We then utilized a Glidewire and a [place] catheter to cross through to the distal popliteal artery. The contrast injection confirmed we were in the true lumen of the tibials and we then selected a 3 x 200 [place] balloon for angioplasty across the distal SFA and popliteal artery. The wire did come back about 10 cm while we were advancing the balloon, and we readvanced it and it appeared to be in the same anatomical position, but in fact it was in a collateral that ran right next to the popliteal artery. This collateral was rather small, and when we inflated the balloon, it did rupture the end of that collateral. We noticed this on a completion arteriogram that there was a small amount of extravasation. We then replaced the balloon and inflated it for three-minute inflation. Unfortunately, this was not enough to completely resolve the extravasation. We therefore reinflated the balloon for four-minute inflation and held pressure over the right popliteal artery. I took a quick contrast injection with the balloon inflated and noted good collateral circulation from the mid distal SFA to the anterior tibial and tibioperoneal trunk distal to the balloon. We therefore gave several flushes as heparinized saline to help keep the tibial arteries flushed during the repeat long inflation of the balloon. Following manual pressure and repeat angioplasty at low atmosphere pressure, there was no extravasation, the potential artery and SFA were widely patent with no residual stenosis, no embolization, no dissection. Completion images showed 3 vessel runoff to the foot with no significant stenosis noted in the tibial vessels, but they are all diminutive in size. Next, we exchanged sheath for short 6 Czech sheath and deployed a Mynx closure device in the left common femoral artery under fluoroscopic guidance. Pressure was held and sterile dressings were applied and there was good hemostasis. The patient was taken back to recovery in stable condition. She tolerated the procedure and the sedation well. ESTIMATED BLOOD LOSS: Approximately 5 mL. COMPLICATIONS: None. PLAN: We plan to see the patient back in a week to check her left groin access site and see how she is doing. She should continue local wound care to her right heel until completely healed. It is okay to resume home diet medications. We also strongly encourage the patient to quit smoking, and she is receptive to our discussions. WAYLON VALENTINE MD Jun 08, 2019 09:35
[2019-06-08 12:45] VITALS: BP 166/62
== END ==
LOC: M IRPRO 06:07
PROVIDERS: ATTEND Surgery Vascular Surgery
DX: I70.234 Atherosclerosis of native arteries of right leg with ulceration of heel and midfoot (principal); L97.419 Non-pressure chronic ulcer of right heel and midfoot with unspecified severity
CPT/HCPCS: 37224; 75710; 99152; 99153; C1725; C1760; C1769; C1887; C1894; J1644; J2250; J3010; Q9967

== ENCOUNTER → 2019-07-16 | Outpatient (CLI) | payer OTHER ==
[~2019-07-16] MED LIST changes: +CYCL-707 PO; -CYCL10TA PO; -HEPARIN 1,000 UNITS/ML 10ML VIAL (FOR RADIOLOGY& DIALYSIS ONLY)(J1644-10) As Ordered ONE; -ISOVUE-300 61% 50ML VIAL (Q9967) As Ordered ONE; -LIDOCAINE 1% MDV 20ML VIAL As Ordered ONE; -MIDAZOLAM INJ 2 MG/2 ML VIAL (J2250) As Ordered ONE; -fentaNYL 100 MCG/2 ML INJECTION (J3010) As Ordered ONE
--- NOTE | 2019-07-17 06:26 | REP ---
Clinical: Status post right lower extremity angioplasty. Technique: Real time gerber scale and color Doppler evaluation of the bilateral lower extremity arterial vasculature using linear high frequency transducer. Comparison: 05/31/2019 Findings: Gerber scale and color images demonstrate significant calcified atherosclerotic changes and generalized stenosis/decreased caliber. The right lower extremity demonstrates elements of increased velocity with primarily monophasic arterial wave patterns demonstrating diastolic flow. There is significant stenosis noted through the right proximal anterior tibial artery. The left lower extremity demonstrates primarily monophasic arterial wave patterns along with moderate stenosis through the proximal anterior tibial artery and suspected occlusion at the level of the distal posterior tibial artery. Peak systolic velocities (cm/sec) RIGHT LEFT Common femoral artery 175 133 (triphasic) Profunda femoris 216 (triphasic) 139 SFA (proximal) 204 145 SFA (mid) 115 151 SFA (distal) 146 131 Popliteal artery 163 117 WILDA (prox.) 51/242 117/246 Tibioperoneal trunk 120 98 GAS BLENDER (prox.) 32 105 GAS BLENDER (distal) 82 occluded WILDA (distal) 46 58 Impression: Significant atherosclerotic changes as described above which appear to have worsened through the left lower extremity as compared to prior examination. Electronically Signed by Ashwin Yañez MD 07/17/2019 06:18 A
== END ==
LOC: M RAD 12:15
PROVIDERS: ATTEND Physician Assistant
DX: I70.213 Atherosclerosis of native arteries of extremities with intermittent claudication, bilateral legs (principal)

== ENCOUNTER → 2019-08-09 | Outpatient (REF) | payer OTHER ==
[2019-08-09 18:15] LABS: ALBUMIN 3.3 GM/DL (3.2-5.2); ALT/SGPT 58 U/L (12-78); BILIRUBIN,TOTAL 0.2 MG/DL (0.2-1.0); BLOOD UREA NITROGEN 22 MG/DL (7-18); CALCIUM LEVEL 8.8 MG/DL (8.5-10.1); CARBON DIOXIDE LEVEL 25 MEQ/L (21-32); CHLORIDE LEVEL 106 MEQ/L (98-107); CHOLESTEROL LEVEL 144 MG/DL (<200); CHOLESTEROL RISK RATIO 3.789 (<5); CREATININE FOR GFR 1.01 MG/DL (0.55-1.30); GLOMERULAR FILTRATION RATE > 60.0 (>58); GLUCOSE, FASTING 214 MG/DL (70-100); HDL CHOLESTEROL 38 MG/DL (>40); NON-HDL-C 106 MG/DL; POTASSIUM SERUM 4.8 MEQ/L (3.5-5.1); SODIUM LEVEL 139 MEQ/L (136-145); TOTAL PROTEIN 6.7 GM/DL (6.4-8.2); TRIGLYCERIDES LEVEL 413 MG/DL (<150)
[2019-08-09 19:34] LABS: HEMOGLOBIN A1c 10.5 %
== END ==
LOC: M SFHCLERA 15:36
PROVIDERS: ATTEND Family Medicine
DX: E11.21 Type 2 diabetes mellitus with diabetic nephropathy (principal); E78.5 Hyperlipidemia, unspecified

== ENCOUNTER → 2019-10-16 | Outpatient (CLI) | payer OTHER ==
[~2019-10-16] MED LIST changes: +CLOP75TA2 PO; +LYRI75CA PO; +atrovastatin PO
--- NOTE | 2019-10-17 00:32 | REP ---
REASON FOR EXAM: Increasing right leg pain. Only the right side was interrogated with ultrasound. The ankle-brachial index is 0.29. ARTERY PEAK SYSTOLIC VELOCITY PHASICITY CHUTE OPERATOR 175 cm/s Monophasic Profunda 177 cm/s Monophasic SFA proximal 136 cm/s Monophasic SFA mid 106 cm/s Monophasic SFA distal 35 cm/s Monophasic Popliteal 36 cm/s Monophasic WILDA proximal 148-45 cm/s Monophasic Tibioperoneal trunk Unobtainable IMAGING TECHNICIAN proximal 18 cm/s Monophasic IMAGING TECHNICIAN distal 20 cm/s Monophasic WILDA distal 12 cm/s Monophasic All velocities have decreased when compared to the 07/23/2019 exam, except for the common femoral artery. There is evidence of significant decrease in flow from distal to the SFA to the ankle with small heavily calcified vessels. Minimal flow is seen in the anterior and posterior tibial arteries distally. A proximal WILDA stenosis was seen and appeared to be unchanged from the prior exam. Electronically Signed by Brett Norris DO 10/17/2019 12:38 P
== END ==
LOC: M LAB 13:57
PROVIDERS: ATTEND Physician Assistant
DX: I70.211 Atherosclerosis of native arteries of extremities with intermittent claudication, right leg (principal)

== ENCOUNTER → 2019-10-22 | Outpatient (CLI) | payer OTHER ==
[~2019-10-22] MED LIST changes: +ACETAMINOPHEN TAB 650MG DOSE (2X325MG) PO PRN; +CLOPIDOGREL 75 MG TAB As Ordered ONE; +CLOPIDOGREL 75 MG TAB PO ONE; +ISOVUE-300 61% 50ML VIAL As Ordered ONE; +LIDOCAINE 1% MDV 20ML VIAL As Ordered ONE; +MIDAZOLAM INJ 2MG/2ML VIAL (J2250 PER 1MG) As Ordered ONE; +fentaNYL 100 MCG/2 ML INJECTION (J3010) As Ordered ONE
[2019-10-22 07:08] LABS: HEMATOCRIT 44.9 % (36.0-47.0); HEMOGLOBIN 14.4 g/dl (12.0-15.5); MEAN CORPUSCULAR HEMOGLOBIN 28.2 pg (27.0-33.0); MEAN CORPUSCULAR HGB CONC 32.1 g/dl (32.0-36.5); MEAN CORPUSCULAR VOLUME 87.9 fl (80.0-96.0); PLATELET COUNT, AUTOMATED 229 10^3/uL (150-450); RED BLOOD COUNT 5.11 10^6/uL (4.00-5.40); WHITE BLOOD COUNT 11.9 10^3/uL (4.0-10.0)
[2019-10-22 08:05] LABS: ALBUMIN 2.8 GM/DL (3.2-5.2); ALT/SGPT 38 U/L (12-78); BILIRUBIN,TOTAL 0.3 MG/DL (0.2-1.0); BLOOD UREA NITROGEN 20 MG/DL (7-18); CALCIUM LEVEL 8.4 MG/DL (8.5-10.1); CARBON DIOXIDE LEVEL 28 MEQ/L (21-32); CHLORIDE LEVEL 105 MEQ/L (98-107); CREATININE FOR GFR 0.96 MG/DL (0.55-1.30); GLOMERULAR FILTRATION RATE > 60.0 (>58); GLUCOSE, FASTING 168 MG/DL (70-100); POTASSIUM SERUM 4.6 MEQ/L (3.5-5.1); SODIUM LEVEL 141 MEQ/L (136-145); TOTAL PROTEIN 6.3 GM/DL (6.4-8.2)
--- NOTE | 2019-10-22 09:32 | ROOPDOC ---
[facility] Report Of Operation Report of Operation DATE OF PROCEDURE: 10/22/19 PREPROCEDURE DIAGNOSES: Atherosclerosis of the [place] vessels with worsening claudication and wound right first toe POSTPROCEDURE DIAGNOSES: Same PROCEDURE: 1. Ultrasound-guided access left common femoral artery 2. Aortoiliofemoral arteriogram 3. Selection right common femoral artery and SFA with right lower extremity runoff 4. 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 Cross occlusion right posterior tibial artery and selection mid posterior tibial artery with runoff 6. Angioplasty right superficial femoral artery and popliteal artery with 4 x 200 [place] balloon 7. Angioplasty right posterior tibial artery with 2.5 x 220 [place] balloon 8. Stent distal right superficial femoral artery and proximal popliteal artery with 4.5 x 122 supera stent and post-dilation with 4 x 200 [place] balloon 9. Completion arteriograms 10. Mynx closure left common femoral artery SURGEON: Waylon Valentine MD ANESTHESIA: Local anesthesia 10 mL lidocaine. Moderate intravenous conscious sedation was supervised by Dr. Valentine. The patient was independently monitored by registered nurse assigned to the Department of radiology using automated blood pressure, EKG, and pulse oximetry. The details sedation records permanently stored in the hospital information system. The following is a brief sedation record: Start time 07:44, stop time 08:59, Versed 1.5 mg IV, fentanyl 75 g IV, heparin 5000 units IV. CONTRAST: 70 mL Isovue-300 INDICATION FOR PROCEDURE: This is very pleasant 44-year-old patient with a long- standing history of tobacco abuse who has recurrent right lower extremity arterial stenosis and a nonhealing wound of the right foot with worsening claudication. Risk benefits alternatives to an arteriogram and potential interv ention were explained to the patient at length and she was agreeable to proceed. Informed consent was obtained. INTERPRETATION: 1. The aortoiliac arterial segments are widely patent. There is no stenosis noted at the common iliac, hypogastric, or external iliac arteries. 2. The right common femoral artery has a 30% stenosis distally with widely patent inflow into the profunda and a widely patent superficial femoral artery distal to this with only mild ectasia but no flow-limiting stenoses. Overall, the vessel is very diminutive in size. 3. The proximal popliteal artery is initially patent, but then occludes for 2 cm and then reconstitutes at the midportion with collaterals around the knee. The distal popliteal artery is patent and runs off into the anterior tibial artery peroneal artery and there is intermittent flow through the posterior tibial artery. The anterior tibial artery has a focal 20% stenosis proximally, but this does not appear significantly flow-limiting and there is excellent flow down through the vessel to the dorsal pedis artery and the distal foot. Peroneal artery has good runoff to the ankle where collateralizes and gives additional flow to the posterior tibial artery. The posterior tibial artery has intermittent occlusions proximally, and then his diminutive in size distally but does have intact runoff from collateral circulation and runs off to the distal foot through the plantar vessels. 4. After angioplasty of the distal common femoral artery on the right and the proximal and mid right superficial femoral artery, there is no significant residual stenosis, no extravasation, no dissection noted and widely patent flow through the SFA. 5. After angioplasty of the total occlusion and the right popliteal artery, there is a marked improvement in flow, but dissection is noted at the area of total occlusion which I believe will reocclude without stenting. Therefore, after stenting and post-dilating with the balloon, there is widely patent flow through the SFA into the popliteal artery with no residual dissection stenosis or extravasation noted. 6. After crossing the proximal occlusions and then angioplasty of the right post erior tibial artery, there is widely patent flow with brisk runoff to the foot. 7. After all interventions, there is no sign of embolization distally and there is brisk runoff to the distal foot. REPORT OF OPERATION: The patient was brought to the angiographic suite in stable condition. Her bilateral groins were prepped and draped in sterile fashion. A timeout was performed. Sedation was a ministered without complication. Ultrasound was used to guide access to the left common femoral artery over the femoral head under ultrasound and fluoroscopic guidance. A wire was passed through this access needle was removed. A 4 [place] glide sheath was placed and flushed with saline. A Glidewire and an Omni Flush catheter were advanced into the distal aorta. Aortoiliofemoral arteriograms were performed. Please interpretation above. We went up and over the bifurcation with a Glidewire and the catheter and selected the right common femoral artery and superficial femoral artery. Arteriograms the right lower extremity were performed. Please see interpretation above. We then exchanged that sheath over the wire for a 6 [place] 45 cm sheath and flushed the sheath with saline. We advanced the Glidewire to the distal superficial femoral artery and a 4 x 200 [place] balloon was then used angioplasty along the length of the superficial femoral artery for three-minute inflations. There is widely patent flow after angioplasty with no dissection or embolization noted. We then advanced a Glidewire down to the popliteal artery occlusion and with support from the balloon, we were able to cross into the distal popliteal artery through the occlusion. We advanced the b alloon and remove the wire and a quick arteriogram selection of the distal popliteal artery confirmed we were in the true lumen. We then angioplasty with the 4 x 200 balloon for three-minute inflations. Following this there was improvement in flow, but still a bit of stenosis and dissection was present. We decided to check this again at the end of the procedure to see if the dissection restenosed or was flow-limiting after a bit of time. We then exchanged the wire through the balloon for an O18 Glidewire advantage and advance this down to the posterior tibial artery. We removed the [place] balloon and were able to navigate the wire into the posterior tibial artery. We then advanced a 2.5 x 220 [place] balloon over the wire into the proximal posterior tibial artery. From the selection, quick arteriogram help distally the true lumen of the vessels a week across safely. There were a lot of collaterals with made this a bit challenging. Eventually, we were able to cross down to the distal posterior tibial artery. A quick contrast injection confirmed we were in the true lumen. We then angioplasty for three-minute inflations along the length of the vessel. Following this, arteriogram confirmed there was excellent 3 vessel runoff to the foot. We then performed a quick arteriogram of the popliteal artery again and it appeared the dissection was in fact flow-limiting and was already restenosed him. We therefore selected a 4.5 x 120 superior stent and deployed across the proximal popliteal artery up into the distal superficial femoral artery. We postdilated this with the 4 x 200 [place] balloon. Following this, there is widely patent flow through the popliteal artery and 3 vessel runoff with no signs of embolization extravasation or dissection. This concluded the procedure. We exchange the wire for the O35 Glidewire and extinct the sheath for short 6 [place] sheath over the wire and the sheath was flushed with saline. We then deployed a Mynx closure device in the left common femoral artery with good hemostasis. Pressure was held for 10 minutes and sterile dressings were applied. The patient was taken to recovery in stable condition. There were no co mplications. The patient tolerated the procedure well. ESTIMATED BLOOD LOSS: Approximately 5 mL. COMPLICATIONS: None PLAN: Okay to resume home diet medications, and continue local wound care right foot. Patient will need at least 60 days of uninterrupted Plavix status post stent placement right lower extremity. The patient had extensive counseling again today about smoking cessation. She has cut back, but has not quit smoking. It is important since she is having rapid restenosis and occlusions of her ar terial system, and since she has such diminutive arteries to begin with, that the patient quit smoking for long-term limb preservation. We have extensively counseled her about this as over time, we will likely notice diminishing improvements from these revascularization procedures. We stressed to her that we need her to do her part by quitting smoking. The patient says she is trying. We will continue to encourage her. We appreciate the opportunity to participate in the care of this patient. WAYLON VALENTINE MD Oct 22, 2019 09:32
[2019-10-22 13:30] VITALS: BP 156/79
== END ==
LOC: M IRPRO 06:29
PROVIDERS: ATTEND Surgery Vascular Surgery
DX: I70.213 Atherosclerosis of native arteries of extremities with intermittent claudication, bilateral legs (principal); I70.234 Atherosclerosis of native arteries of right leg with ulceration of heel and midfoot; I70.92 Chronic total occlusion of artery of the extremities; E11.9 Type 2 diabetes mellitus without complications; F17.210 Nicotine dependence, cigarettes, uncomplicated; F31.9 Bipolar disorder, unspecified; F32.9 Major depressive disorder, single episode, unspecified; F41.9 Anxiety disorder, unspecified; I10 Essential (primary) hypertension; G43.909 Migraine, unspecified, not intractable, without status migrainosus; K21.9 Gastro-esophageal reflux disease without esophagitis; Z79.4 Long term (current) use of insulin; Z79.82 Long term (current) use of aspirin; Z79.899 Other long term (current) drug therapy; Z88.1 Allergy status to other antibiotic agents; Z88.8 Allergy status to other drugs, medicaments and biological substances
CPT/HCPCS: 37226; 37228; 75630; 75774; 80053; 85027; 99152; 99153; C1725; C1729; C1760; C1769; C1876; C1887; C1894; J1644; J2250; J3010; Q9967

== ENCOUNTER → 2019-12-17 | Outpatient (CLI) | payer OTHER ==
[~2019-12-17] MED LIST changes: -ACETAMINOPHEN TAB 650MG DOSE (2X325MG) PO PRN; -CLOPIDOGREL 75 MG TAB As Ordered ONE; -CLOPIDOGREL 75 MG TAB PO ONE; -ISOVUE-300 61% 50ML VIAL As Ordered ONE; -LIDOCAINE 1% MDV 20ML VIAL As Ordered ONE; -MIDAZOLAM INJ 2MG/2ML VIAL (J2250 PER 1MG) As Ordered ONE; -fentaNYL 100 MCG/2 ML INJECTION (J3010) As Ordered ONE
--- NOTE | 2020-01-03 09:26 | REP ---
BILATERAL LOWER EXTREMITY ARTERIAL DOPPER ULTRASOUND HISTORY: Atherosclerosis. Intermittent claudication bilateral legs. COMPARISON: Sonography 10/16/2019. Patient is status post right lower extremity angioplasty. SONOGRAPHIC FINDINGS: Ankle brachial indices are 0.9 on the right and 0.8 on the left. Moderate diffuse plaquing is seen. Improved flow is noted in the common femoral and proximal femoral artery and profunda femoral artery. The left posterior tibial artery is occluded distally with reversed revascularized flow. VELOCITY CHART BILATERAL LOWER EXTREMITIES RIGHT (cm/s) LEFT (cm/s) DIRECTOR OF HOME HEALTH SERVICES 238 153 Profunda 198 160 Proximal SFA 194 162 Mid SFA 141 133 Distal SFA 112 102 Popliteal 70 120 Proximal WILDA 105 [address] trunk [address] SQL DEVELOPER [address] SQL DEVELOPER 58 Occluded Distal WILDA 51 63 MTDD
== END ==
LOC: M RAD 12:02
PROVIDERS: ATTEND Physician Assistant
DX: I70.213 Atherosclerosis of native arteries of extremities with intermittent claudication, bilateral legs (principal)

== ENCOUNTER → 2020-07-09 | Outpatient (CLI) | payer OTHER ==
[~2020-07-09] MED LIST changes: +LISI10TA22 PO; -LISI10TA4 PO; +QUET50TA3 PO; -QUET5TAB PO
--- NOTE | 2020-07-09 14:47 | REP ---
INDICATION: CLAUDICATION. COMPARISON: None. 12/17/2019. TECHNIQUE: Duplex ultrasound of the lower extremity arterial systems bilaterally. FINDINGS: Right lower extremity: Brachial peak systole: NA mmHg Dorsalis pedis peak systole: Not audible mmHg HOME AGENT peak systole: Not audible mmHg RENETTA: NA JAVA ORACLE DEVELOPER: 207 velocity, biphasic phasicity Profunda: 221 velocity, biphasic phasicity SFA prox: 177 velocity, monophasic phasicity SFA mid: 316/150 velocity, monophasic phasicity SFA dist: 144 velocity, monophasic phasicity Pop: 145 velocity, monophasic phasicity WILDA prox: 58 velocity, monophasic phasicity Tib/P tr: 127 velocity, monophasic phasicity HOME AGENT pr: 67 velocity, monophasic phasicity HOME AGENT dst: Take 43 velocity, monophasic phasicity WILDA dst: Neck 24 velocity, monophasic phasicity Left lower extremity: Brachial peak systole: NA mmHg Dorsalis pedis peak systole: Not audible mmHg HOME AGENT peak systole: Not audible mmHg RENETTA: NA JAVA ORACLE DEVELOPER: 159 velocity, 8 triphasic phasicity Profunda: Thick 93 velocity, biphasic phasicity SFA prox: 143 velocity, triphasic phasicity SFA mid: 204 velocity, 4 triphasic phasicity SFA dist: 180 velocity, biphasic phasicity Pop: 198 velocity, triphasic phasicity WILDA prox: 118 velocity, biphasic phasicity Tib/P tr: 163 velocity, biphasic phasicity HOME AGENT pr: 86 velocity, biphasic phasicity HOME AGENT dst: 22 velocity, occluded/revascularized, monophasic phasicity WILDA dst: 68 velocity, biphasic phasicity IMPRESSION: There is severe calcific plaque bilaterally. Right lower extremity: Biphasic waveforms are seen only at the JAVA ORACLE DEVELOPER and profunda. There mono A's monophasic waveforms from the SFA to the ankle. There are increased flow velocities at the mid SFA and at the tibial/peroneal trunk. Left lower extremity: There are biphasic/triphasic waveforms throughout with the exception of the distal HOME AGENT where there is occlusion with collateral revascularization of the vessels distal to this. Increased flow velocity is seen at the proximal SFA and at the popliteal artery. <Electronically signed by Ayaz Mendoza > 07/09/20 [id number]
== END ==
LOC: M RAD 10:03
PROVIDERS: ATTEND Physician Assistant
DX: I70.213 Atherosclerosis of native arteries of extremities with intermittent claudication, bilateral legs (principal)

== ENCOUNTER → 2020-08-12 | Outpatient (CLI) | payer OTHER ==
[~2020-08-12] MED LIST changes: -CVS10CAP8 PO; +ISOVUE-300 61% 50ML VIAL As Ordered ONE; +LIDOCAINE 1% MDV 20ML VIAL As Ordered ONE; +MELA10CA6 PO; +MIDAZOLAM INJ 2MG/2ML VIAL (J2250 PER 1MG) As Ordered ONE; +fentaNYL 100 MCG/2 ML INJECTION (J3010) As Ordered ONE
[2020-08-12 09:24] LABS: HEMATOCRIT 46.2 % (36.0-47.0); HEMOGLOBIN 14.6 g/dl (12.0-15.5); MEAN CORPUSCULAR HEMOGLOBIN 26.8 pg (27.0-33.0); MEAN CORPUSCULAR HGB CONC 31.6 g/dl (32.0-36.5); MEAN CORPUSCULAR VOLUME 84.9 fl (80.0-96.0); PLATELET COUNT, AUTOMATED 318 10^3/uL (150-450); RED BLOOD COUNT 5.44 10^6/uL (4.00-5.40); WHITE BLOOD COUNT 11.2 10^3/uL (4.0-10.0)
[2020-08-12 09:50] LABS: BLOOD UREA NITROGEN 20 MG/DL (7-18); CALCIUM LEVEL 8.9 MG/DL (8.5-10.1); CARBON DIOXIDE LEVEL 27 MEQ/L (21-32); CHLORIDE LEVEL 105 MEQ/L (98-107); CREATININE FOR GFR 0.95 MG/DL (0.55-1.30); GLOMERULAR FILTRATION RATE > 60.0 (>58); GLUCOSE, FASTING 107 MG/DL (70-100); SODIUM LEVEL 137 MEQ/L (136-145)
--- NOTE | 2020-08-12 11:15 | ROOPDOC ---
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 Ultrasound-guided access left common femoral artery 2. Aortoiliofemoral arteriogram 3. Selection right superficial femoral artery and right lower extremity runoff 4. Selection right tibioperoneal trunk and posterior tibial artery and arteriograms 5. Angioplasty right superficial femoral artery with 4 x 220 Benjamin balloon 6. Completion arteriogram right lower extremity 7. Mynx closure left common femoral artery SURGEON: Waylon Valentine MD ANESTHESIA: Local anesthesia 6 mL lidocaine. Moderate intravenous conscious sedation was supervised by Dr. Valentine. The patient was independently monitored by registered nurse assigned to the Department of radiology using automated blood pressure, EKG, and pulse oximetry. The detailed sedation record is permanently stored in the hospital information system. The following is a brief sedation record: Start time 09:59, stop time 10:31, fentanyl 50 g IV, Versed 1 mg IV, heparin 3000 units IV. CONTRAST: 33 mL Isovue-300 INDICATION FOR PROCEDURE: This is a very pleasant 45-year-old patient with atherosclerosis in the [place] arteries and nonhealing wound of the left first toe. Risks benefits and alternatives to an arteriogram and potential intervention were explained to the patient she is agreeable to proceed. Informed consent was obtained. INTERPRETATION: 1. The distal aorta and common iliac arteries, hypogastric arteries, and external iliac arteries bilaterally are diminutive but widely patent. No stenosis noted. The right common femoral artery is diminutive but patent with good runoff into the profunda and the SFA. The SFA stent is patent. There are some mild stenoses throughout the proximal SFA, 20-30%, a focal stenosis of 60% just proximal to the SFA stent, and some mild intimal hyperplasia in the proximal SFA stent. Distal to this, good runoff through the SFA into the popliteal artery which is also diminutive but widely patent. There is excellent runoff to the foot through the anterior tibial artery and the peroneal artery. 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 I see a large branch coming off proximal to the tibioperoneal trunk that bifurcates several times in the upper calf. There is then a bifurcation of the tibioperoneal trunk into the peroneal artery and another small vessel that bifurcates early in the upper calf. 2. After angioplasty of the right superficial femoral artery and stent with 4 x 220 Benjamin balloon, there is widely patent flow with no significant residual stenosis no dissection noted extravasation no AV fistula. 3. We attempted to see if we could cross further distally through one of the branches that I suspected might be connected to a distal vessel that could be the posterior tibial artery, but even though the wire passed easily to the mid calf, it did not pass further distally. When I injected contrast in this area, no in-line flow was noted and a small amount of extravasation was noted around a piece of calcium. Upon retraction of the catheter to the tibioperoneal trunk, injection of contrast did not show any active extravasation. Upon retraction of the catheter into the popliteal artery distally there also was no extravasation noted from the branches supplying the proximal distribution of the posterior tibial artery. There was still excellent flow through the anterior tibial artery and peroneal artery to the foot. REPORT OF OPERATION: The patient was brought to the angiographic suite in stable condition. Her bilateral groins were prepped and draped in a sterile fashion. A timeout was performed. Sedation was administered without complication. Local anesthesia was administered to the skin and subcutaneous tissue over the left common femoral artery. A microneedle was used to access the artery under ultrasound guidance. A wire was passed through this access needle was removed. A 4 Slovenian sheath was placed and flushed with saline. A Glidewire and flushing catheter were advanced into the aorta and aortoiliofemoral arteriograms were performed, please interpretation above. We then went up and over the bifurcation with the Glidewire in the catheter and selected the right superficial femoral artery and right lower extremity runoff was performed, please interpretation above. We then exchange the sheath over the wire for 5 [place]ian destination sheath 45 cm and flushed the sheath with saline. Exchanged the wire for 01 manage and advanced this through to the distal popliteal artery. A 4 x 220 Benjamin balloon was advanced over the wire and used angioplasties superficial femoral artery. Three-minute inflation was performed. Following this there was widely patent flow with no significant residual stenosis in no extravasation, AV fistula, embolization, or dissection noted. We then advanced the wire down to the tibioperoneal trunk and mobilize the wire into one of the vessels in the distribution of the posterior tibial artery and tried to advance his distally. Initially, the wire passed easily and we thought perhaps we had found the named posterior tibial vessel, but then in the mid calf it met some resistance with calcium and upon injection there was a small amount of extravasation noted. Upon retraction of the catheter, no extravasation was noted, and upon retraction of the catheter and the tibioperoneal trunk and the popliteal artery no extravasation was noted. I suspect this was only a collateral and not the [place] vessel. 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 She still had excellent runoff through the anterior tibial artery and peroneal artery to the distal foot. This concluded our procedure. We exchange the wire for 035 guidewire and removed the sheath and replaced it with a short 5 Slovenian sheath into play to Mynx closure device the left common femoral artery with good hemostasis. Pressure was held a sterile dressings were applied. The patient was taken recovery in stable condition. She tolerated the procedure in the sedation well. ESTIMATED BLOOD LOSS: Approximately 2 mL. COMPLICATIONS: None. PLAN: Okay to resume home diet and medications. Okay to resume Plavix. Okay to resume local wound care left foot. We'll follow the patient up in a week to check her groin access site. In the meantime, no lifting greater than 5 pounds and no strenuous exercise for the next 3 days to minimize the risk of bleeding or bruising at the groin access site on the left. We appreciate the opportunity to participate in the care this patient. WAYLON VALENTINE MD August 12, 2020 11:15
[2020-08-12 15:00] VITALS: BP 159/75
== END ==
LOC: M IRPRO 08:46
PROVIDERS: ATTEND Surgery Vascular Surgery
DX: I70.235 Atherosclerosis of native arteries of right leg with ulceration of other part of foot (principal); I70.213 Atherosclerosis of native arteries of extremities with intermittent claudication, bilateral legs; L97.519 Non-pressure chronic ulcer of other part of right foot with unspecified severity; E11.621 Type 2 diabetes mellitus with foot ulcer; G43.909 Migraine, unspecified, not intractable, without status migrainosus; F17.210 Nicotine dependence, cigarettes, uncomplicated; F31.9 Bipolar disorder, unspecified; F41.9 Anxiety disorder, unspecified; I10 Essential (primary) hypertension; Z79.4 Long term (current) use of insulin; Z79.82 Long term (current) use of aspirin; Z79.899 Other long term (current) drug therapy; Z88.1 Allergy status to other antibiotic agents; Z88.8 Allergy status to other drugs, medicaments and biological substances
CPT/HCPCS: 37224; 75710; 80048; 85027; 99152; 99153; C1725; C1729; C1760; C1769; C1887; C1894; J1644; J2250; J3010; Q9967

== ENCOUNTER → 2020-12-19 | Outpatient (CLI) | payer OTHER ==
[~2020-12-19] MED LIST changes: -ISOVUE-300 61% 50ML VIAL As Ordered ONE; -LIDOCAINE 1% MDV 20ML VIAL As Ordered ONE; -MIDAZOLAM INJ 2MG/2ML VIAL (J2250 PER 1MG) As Ordered ONE; -QUET50TA3 PO; +QUET50TA4 PO; -fentaNYL 100 MCG/2 ML INJECTION (J3010) As Ordered ONE
== END ==
LOC: M RAD 11:57
PROVIDERS: ATTEND Physician Assistant
DX: I70.213 Atherosclerosis of native arteries of extremities with intermittent claudication, bilateral legs (principal); I70.234 Atherosclerosis of native arteries of right leg with ulceration of heel and midfoot

== ENCOUNTER → 2021-03-02 | Outpatient (CLI) | payer OTHER | LOC: M RAD 14:27 | PROVIDERS: ATTEND Surgery Vascular Surgery | DX: R93.6 Abnormal findings on diagnostic imaging of limbs (principal); I73.9 Peripheral vascular disease, unspecified ==

== ENCOUNTER → 2021-05-21 | Outpatient (CLI) | payer OTHER, MEDICAID ==
[2021-05-21 16:17] LABS: CHOLESTEROL RISK RATIO 2.244 (<5)
[2021-05-21 18:53] LABS: HEMOGLOBIN A1c 9.4 %
== END ==
LOC: M WUC 14:33
PROVIDERS: ATTEND Student in an Organized Health Care Education/Training Program
DX: E11.21 Type 2 diabetes mellitus with diabetic nephropathy (principal)

== ENCOUNTER → 2022-05-27 | Outpatient (CLI) | payer OTHER | LOC: M RAD 12:03 | PROVIDERS: ATTEND Surgery Vascular Surgery | DX: I73.9 Peripheral vascular disease, unspecified (principal) ==

== ENCOUNTER → 2024-04-26 | Outpatient (REF) | payer OTHER ==
[~2024-04-26] MED LIST changes: +GABA-1490 PO; -GABA600T4 PO
[2024-04-26 17:29] LABS: BASO # 0.1 10^3/uL (0.0-0.2); BASO % 0.8 % (0.0-1.0); EOS # 0.5 10^3/uL (0.0-0.5); EOS % 4.6 % (0.0-3.0); HEMATOCRIT 46.5 % (36.0-47.0); HEMOGLOBIN 14.7 g/dl (12.0-15.5); LYMPH # 1.1 10^3/uL (1.5-5.0); LYMPH % 10.6 % (24.0-44.0); MEAN CORPUSCULAR HEMOGLOBIN 27.3 pg (27.0-33.0); MEAN CORPUSCULAR HGB CONC 31.6 g/dl (32.0-36.5); MEAN CORPUSCULAR VOLUME 86.4 fl (80.0-96.0); MONO # 0.7 10^3/uL (0.0-0.8); MONO % 6.9 % (2.0-8.0); NEUTROPHILS # 8.1 10^3/uL (1.5-8.5); NEUTROPHILS % 76.8 % (36.0-66.0); PLATELET COUNT, AUTOMATED 250 10^3/uL (150-450); RED BLOOD COUNT 5.38 10^6/uL (4.00-5.40); WHITE BLOOD COUNT 10.5 10^3/uL (4.0-10.0)
[2024-04-26 17:39] LABS: CREATININE, URINE 46.5 MG/DL; MAU/CREAT RATIO 8.6 MCG/MG (0.0-30.0)
[2024-04-26 17:41] LABS: ALKALINE PHOSPHATASE 140 U/L (35-104); ALT/SGPT 25 U/L (7.0-40); AST/SGOT 16 U/L (<34); BILIRUBIN,TOTAL 0.3 MG/DL (0.3-1.2); BLOOD UREA NITROGEN 16 MG/DL (9-23); CALCIUM LEVEL 8.7 MG/DL (8.5-10.1); CARBON DIOXIDE LEVEL 26 MMOL/L (20-31); CHLORIDE LEVEL 105 MMOL/L (98-107); CHOLESTEROL LEVEL 89 MG/DL (<200); CHOLESTEROL RISK RATIO 2.83 (<5); CREATININE FOR GFR 0.88 MG/DL (0.55-1.30); GLOMERULAR FILTRATION RATE > 60.0 (>58); GLUCOSE, FASTING 308 MG/DL (60-100); HDL CHOLESTEROL 31.4 MG/DL (>40); LDL CHOLESTEROL 31.2 MG/DL (<100); NON-HDL-C 57.6 MG/DL; POTASSIUM SERUM 4.6 MMOL/L (3.5-5.1); SODIUM LEVEL 140 MMOL/L (136-145); TOTAL PROTEIN 6.9 G/DL (5.7-8.2); TRIGLYCERIDES LEVEL 132 MG/DL (<150)
[2024-04-26 17:52] LABS: HEMOGLOBIN A1c 7.2 % (4.0-6.0)
== END ==
LOC: M SFHCLERA 14:53
DX: E11.21 Type 2 diabetes mellitus with diabetic nephropathy (principal); I10 Essential (primary) hypertension

== ENCOUNTER → 2024-05-09 | Outpatient (CLI) | payer OTHER | LOC: M WHC 16:31 | DX: Z12.31 Encounter for screening mammogram for malignant neoplasm of breast (principal) ==

== ENCOUNTER → 2024-08-03 | Outpatient (CLI) | payer OTHER ==
[~2024-08-03] MED LIST changes: +BUPR150T15 PO; -BUPR1TAB53 PO
[2024-08-03 18:45] LABS: HEMOGLOBIN A1c 6.3 % (4.0-6.0)
== END ==
LOC: M WUC 15:04
DX: E11.21 Type 2 diabetes mellitus with diabetic nephropathy (principal)